=== PATIENT | female | born 1975 | race Caucasian/White ===

== ENCOUNTER 2018-01-11 08:35 | Emergency (ER) | payer BC ==
[2018-01-11] MEDS ORDERED: NA CHLORIDE 0.9% 1,000 ML ONE (09:21)
[2018-01-11] MEDS ORDERED: ONDANSETRON 4 MG/2 ML VIAL ONE (09:21)
[2018-01-11 09:37] LABS: Absolute Lymphocytes (CBC) 1.3 K/uL (0.7-4.9); Absolute Monocytes 0.6 K/uL (0.1-1.3); Basophils % 1.2 % (0-1.3); Hematocrit 32.7 % (36.0-45.0); Lymphocytes % 21.9 % (15.3-44.8); MCH 22.5 pg (27.0-35.0); MCV 73.8 fL (80-100); Monocytes % 9.6 % (3.3-12.3); RBC Red Blood Cell Count 4.43 M/uL (3.86-4.86)
[2018-01-11] MEDS ORDERED: FENTANYL CITR 100 MCG/2 ML ONE (09:38)
[2018-01-11 09:44] LABS: Potassium 3.8 mEq/L (3.6-5.0)
[2018-01-11 09:52] LABS: Urine Blood 1+ (NEG); Urine Glucose NEGATIVE (NEG); Urine Protein 1+ (NEG); Urine Specific Gravity 1.015 (1.005-1.030); Urine pH 6.5 (5.0-7.0)
--- NOTE | 2018-01-11 10:11 | RAD REPORT ---
EXAM DESCRIPTION: CT - Stone Protocol - 01/11/2018 9:49 am CLINICAL HISTORY: Flank pain. COMPARISON: 02/16/2017, 01/15/2017 TECHNIQUE: Axial images were obtained without oral or IV contrast. Lack of contrast limits solid org an and vascular assessment. The [id number] spans the entirety of the system partially obscuring uppermost abdomen and lung bases. Coronal reformatted images were obtained and reviewed. All CT scans are performed using dose optimization technique as appropriate and may include automated exposure control or mA/KV adjustment according to patient size. FINDINGS: The lower lung deluna are clear. Imaged portions of the liver and spleen show no suspicious findings on non-contrast imaging. The panc reas and adrenal glands are normal. No pathologic lymphadenopathy in the abdomen or pelvis. Bilateral nephrolithiasis. Mild bilateral hydronephrosis. The urinary bladder wall is thickened. No bowel obstruction, free air, intra-abdominal free fluid or abscess. Normal appendix noted. No significant bony abnormality. Trace pelvic free fluid. IMPRESSION: Punctate bilateral caliceal stones are present. Mild bilateral hydronephrosis is seen without obstructing calculi. Urinary bladder is thickened which may indicate cystitis.
[2018-01-11 10:32] LABS: Urine Bacteria >50 /HPF (<20); Urine Culture Reflex Order REFLEXED
--- NOTE | 2018-01-11 11:08 | EDPHYS ---
Physician Documentation [facility] Name: Stefanie Valentin Age: 42 yrs Sex: Female : 1975 Arrival Date: 01/11/2018 Time: 08:39 Bed 15 Private MD: Wicho Elmore H ED Physician Guzman Martin HPI: 01/11 09:12 This 42 yrs old Female presents to ER via Ambulatory with complaints of kb Possible Kidney Stone. 09:12 The patient complains of pain in the left flank and right flank. The pain radiates to kb the abdomen. Onset: The symptoms/episode began/occurred 1 week(s) ago. Modifying factors: The symptoms are alleviated by nothing. the symptoms are aggravated by palpation/percussion. Associated signs and symptoms: Pertinent positives: dysuria, urinary frequency, Pertinent negatives: diarrhea, dizziness, fever, headache, hematuria, nausea, pain radiating to the lower extremities, vomiting. Severity of pain: At its worst the pain was moderate in the emergency department the pain is unchanged. The patient has experienced similar episodes in the past, multiple times. The patient has not recently seen a physician. Pt states "I'm here for kidney stones. I get them every year and I know that's what it is.". 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 - Social history:: Smoking status: Patient/guardian denies using tobacco. ROS: 09:12 Constitutional: Negative for fever, chills, and weight loss, Cardiovascular: Negative kb for chest pain, palpitations, and edema, Respiratory: Negative for shortness of breath, cough, wheezing, and pleuritic chest pain, Abdomen/GI: Negative for abdominal pain, nausea, vomiting, diarrhea, and constipation, MS/Extremity: Negative for injury and deformity, Skin: Negative for injury, rash, and discoloration, Neuro: Negative for headache, weakness, numbness, tingling, and seizure. 09:12 Back: Positive for flank pain, bilaterally, Negative for injury or acute deformity, decreased range of motion, pain with movement. 09:12 : Positive for urinary symptoms, urinary frequency, burning with urination. Exam: 09:12 Constitutional: This is a well developed, well nourished patient who is awake, alert, kb and in no acute distress. Head/Face: Normocephalic, atraumatic. Chest/axilla: Normal chest wall appearance and motion. Nontender with no deformity. No lesions are appreciated. Cardiovascular: Regular rate and rhythm with a normal S1 and S2. No gallops, murmurs, or rubs. Normal PMI, no JVD. No pulse deficits. Respiratory: Lungs have equal breath sounds bilaterally, clear to auscultation and percussion. No rales, rhonchi or wheezes noted. No increased work of breathing, no retractions or nasal flaring. Abdomen/GI: Soft, non-tender, with normal bowel sounds. No distension or tympany. No guarding or rebound. No evidence of tenderness throughout. Skin: Warm, dry with normal turgor. Normal color with no rashes, no lesions, and no evidence of cellulitis. MS/ Extremity: Pulses equal, no cyanosis. Neurovascular intact. Full, normal range of motion. Neuro: Awake and alert, GCS 15, oriented to person, place, time, and situation. Cranial nerves II-XII grossly intact. Motor strength 5/5 in all extremities. Sensory grossly intact. Cerebellar exam normal. Normal gait. 09:12 Back: CVA tenderness, that is mild, that is moderate, is noted bilaterally. Vital Signs: 08:55 BP 124 / 85; Pulse 81; Resp 16; Temp 98; Pulse Ox 100% on R/A; Weight 90.72 kg; Height hb 5 ft. 5 in. (165.10 cm); Pain 7/10; 11:07 BP 115 / 54; Pulse 65; Resp 18; Pulse Ox 99% on R/A; Pain 5/10; ph 08:55 Body Mass Index 33.28 (90.72 kg, 165.10 cm) hb MDM: 08:59 Patient medically screened. kb 09:12 Data reviewed: vital signs, nurses notes. Data interpreted: Pulse oximetry: on room air kb is 100 %. Interpretation: normal. 10:36 Counseling: I had a detailed discussion with the patient and/or guardian regarding: the kb historical points, exam findings, and any diagnostic results supporting the discharge/admit diagnosis, lab results, radiology results, the need for outpatient follow up, a urologist, to return to the emergency department if symptoms worsen or persist or if there are any questions or concerns that arise at home. 01/11 09:03 Order name: Urine Microscopic Only; Complete Time: 10:35 kb 01/11 09:08 Order name: CBC with Diff; Complete Time: 09:55 kb 01/11 09:08 Order name: Basic Metabolic Panel; Complete Time: 09:48 kb 01/11 09:20 Order name: Urine Dipstick--Ancillary (enter results); Complete Time: 09:55 bd 01/11 09:20 Order name: Urine --Ancillary (enter results); Complete Time: 09:55 bd 01/11 10:34 Order name: Urine Culture EDMS 01/11 09:03 Order name: Urine Test (obtain specimen); Complete Time: 09:19 kb 01/11 09:03 Order name: Urine Dipstick-Ancillary (obtain specimen); Complete Time: 09:19 kb 01/11 09:08 Order name: IV Start; Complete Time: 09:19 kb 01/11 09:08 Order name: CT Stone Protocol; Complete Time: 10:26 kb Administered Medications: 09:51 Drug: Zofran 4 mg Route: IVP; Site: right antecubital; ph 09:52 Drug: fentaNYL (PF) 50 mcg Route: IVP; Site: right antecubital; ph 09:52 Drug: NS 0.9% 1000 ml Route: IV; Rate: 1000 ml; Site: right antecubital; ph 11:25 Drug: Rocephin - (cefTRIAXone) 1 grams Route: IVPB; Infused Over: 30 mins; Site: right aa5 antecubital; Disposition: 14:19 Co-signature as Attending Physician, Guzman Martin MD I agree with the assessment and damian plan of care. Disposition: 01/11/18 11:07 Discharged to Home. Impression: Cystitis. - Condition is Stable. - Discharge Instructions: Urinary Tract Infection, [id number]. - Prescriptions for Cipro 500 mg Oral Tablet - take 1 tablet by ORAL route every 12 hours for 7 days; 14 tablet. Tramadol 50 mg Oral Tablet - take 1 tablet by ORAL route every 8 hours as needed; 12 tablet. - Medication Reconciliation Form, Thank You Letter, Antibiotic Education, Prescription Opioid Use, Work release form form. - Follow up: Emergency Department; When: As needed; Reason: Worsening of condition. Follow up: Private Physician; When: 2 - 3 days; Reason: Recheck today's complaints, Continuance of care, Re-evaluation by your physician. Signatures: Dispatcher [employer] EDMS Tami Arellano, EMBOSSED OR IMPRESSED LETTERING PAINTER-C EMBOSSED OR IMPRESSED LETTERING PAINTER-Billb Guzman Martin MD MD cha Calderon, Audri, RN RN aa5 Emilee Kapoor RN RN Naila Lora RN RN Corrections: (The following items were deleted from the chart) 11:39 11:07 01/11/2018 11:07 Discharged to Home. Impression: Cystitis. Condition is Stable. ph Discharge Instructions: Urinary Tract Infection, [id number]. Prescriptions for Cipro 500 mg Oral Tablet - take 1 tablet by ORAL route every 12 hours for 7 days; 14 tablet. and Forms are Medication Reconciliation Form, Thank You Letter, Antibiotic Education, Prescription Opioid Use. Follow up: Emergency Department; When: As needed; Reason: Worsening of condition. Follow up: Private Physician; When: 2 - 3 days; Reason: Recheck today's complaints, Continuance of care, Re-evaluation by your physician. kb
--- NOTE | 2018-01-11 11:08 | ER ---
Nurse's Notes [facility] Name: Stefanie Valentin Age: 42 yrs Sex: Female : 1975 Arrival Date: 01/11/2018 Time: 08:39 Bed 15 Private MD: Wicho Elmore H Diagnosis: Cystitis Presentation: 01/11 08:53 Presenting complaint: Patient states: Both my kidneys hurt and the pain radiates down hb into both hips for the last week. Also reports itching, and loss of appetite. Hx kidney stones, HTN. Transition of care: patient was not received from another setting of care. Onset of symptoms is unknown. Initial Sepsis Screen: Does the patient meet any 2 criteria? No. Patient's initial sepsis screen is negative. Does the patient have a suspected source of infection? No. Patient's initial sepsis screen is negative. Care prior to arrival: None. 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 - Social history:: Smoking status: Patient/guardian denies using tobacco. Screenin:27 Abuse screen: Denies threats or abuse. Denies injuries from another. Nutritional ph screening: No deficits noted. Tuberculosis screening: No symptoms or risk factors identified. Fall Risk None identified. Assessment: 09:24 General: Appears in no apparent distress. uncomfortable, well groomed, Behavior is ph calm, cooperative, appropriate for age, Denies fever. Pain: Complains of pain in mid back area Pain radiates to right flank, left flank and abdomen. Neuro: Level of Consciousness is awake, alert, obeys commands, Oriented to person, place, time, situation. Cardiovascular: Capillary refill < 3 seconds in bilateral fingers Patient's skin is warm and dry. Respiratory: Airway is patent Respiratory effort is even, unlabored, Respiratory pattern is regular, symmetrical. GI: Abdomen is round non-distended, Bowel sounds present X 4 quads. Abd is soft and non tender X 4 quads. Reports nausea, Patient currently denies vomiting. : Reports burning with urination, pain in bilateral flank(s), lower quadrant(s) in lower back urinary frequency. Derm: Skin is intact, is healthy with good turgor, Skin is pink, warm \T\ dry. Musculoskeletal: Circulation, motion, and sensation intact. Range of motion: intact in all extremities. 11:08 Reassessment: Patient appears in no apparent distress at this time. Patient and/or ph family updated on plan of care and expected duration. Pain level reassessed. Patient is alert, oriented x 3, equal unlabored respirations, skin warm/dry/pink. Pt resting quietly, reports that pain has decreased to 5/10 and denies nausea, VSS will continue to monitor. Vital Signs: 08:55 BP 124 / 85; Pulse 81; Resp 16; Temp 98; Pulse Ox 100% on R/A; Weight 90.72 kg; Height hb 5 ft. 5 in. (165.10 cm); Pain 7/10; 11:07 BP 115 / 54; Pulse 65; Resp 18; Pulse Ox 99% on R/A; Pain 5/10; ph 08:55 Body Mass Index 33.28 (90.72 kg, 165.10 cm) hb ED Course: 08:39 Patient arrived in ED. mr 08:39 Wicho Elmore DO is Private Physician. mr 08:50 Tami Arellano [facility]-C [facility]. kb 08:50 Guzman Martin MD is Attending Physician. kb 08:55 Triage completed. hb 08:55 Arm band placed on left wrist. hb 09:01 Eimlee Kapoor, HANY is Primary Nurse. ph 09:27 Patient has correct armband on for positive identification. Bed in low position. Call ph light in reach. Side rails up X 1. Pulse ox on. NIBP on. Warm blanket given. 09:27 Inserted saline lock: 20 gauge in right antecubital area, using aseptic technique. ph Blood collected. 09:[address] via wheelchair. kw1 09:48 CT completed. Patient tolerated procedure well. Patient moved back from [place]. kw1 09:49 CT Stone Protocol In Process Unspecified. EDMS 11:08 No provider procedures requiring assistance completed. ph Administered Medications: 09:51 Drug: Zofran 4 mg Route: IVP; Site: right antecubital; ph 09:52 Drug: fentaNYL (PF) 50 mcg Route: IVP; Site: right antecubital; ph 09:52 Drug: NS 0.9% 1000 ml Route: IV; Rate: 1000 ml; Site: right antecubital; ph 11:25 Drug: Rocephin - (cefTRIAXone) 1 grams Route: IVPB; Infused Over: 30 mins; Site: right aa5 antecubital; Outcome: 11:07 Discharge ordered by . kb 11:39 Patient left the ED. ph Addendum: 01/14/2018 07:33 Addendum: Culture Results: Positive urine culture. No further action required. Bacteria i w sensitive to prescribed antibiotic. Signatures: Dispatcher [employer] EDMS Tami Arellano, LINDY SCABBLER-Leslie Landrum Irene, Rekha Greene RN, RN RN aa Emilee Kapoor RN RN Naila Lora RN RN Tiki Godinez kw1
[2018-01-11] MEDS ORDERED: CEFTRIAXONE/SWI 1gm 1 GM/10 ML SYR ONE (11:21)
[2018-01-11 11:46] VITALS: TEMP 98
[2018-01-11 11:47] VITALS: BP 115/54; O2SAT 99
== END 2018-01-11 11:39 | disposition home or self-care (01) ==
LOC: ER 08:35
DX: N30.90 Cystitis, unspecified without hematuria (principal); I10 Essential (primary) hypertension; E03.9 Hypothyroidism, unspecified; Z88.5 Allergy status to narcotic agent; Z88.6 Allergy status to analgesic agent
CPT/HCPCS: 36415; 74176; 76377; 80048; 81003; 81015; 81025; 85025; 87077; 87086; 87088; 87186; 96374; 96375; 99284; J0696; J2405; J3010; J7030

== ENCOUNTER 2018-01-25 20:51 | Emergency (ER) | payer BC ==
[2018-01-25 21:56] LABS: Urine Blood 1+ (NEG); Urine Glucose NEGATIVE (NEG); Urine Protein NEGATIVE (NEG); Urine Specific Gravity 1.025 (1.005-1.030); Urine pH 6.5 (5.0-7.0)
[2018-01-25] MEDS ORDERED: MORPHINE 4 MG/ML SYR ONE (22:03)
[2018-01-25] MEDS ORDERED: ONDANSETRON 4 MG/2 ML VIAL ONE (22:03)
[2018-01-25 22:06] LABS: Absolute Lymphocytes (CBC) 1.7 K/uL (0.7-4.9); Absolute Monocytes 0.5 K/uL (0.1-1.3); Absolute Neutrophil 1.7 K/uL (1.8-8.0); Eosinophils % 2.6 % (0-4.4); Hematocrit 30.3 % (36.0-45.0); Lymphocytes % 41.3 % (15.3-44.8); MCH 23.1 pg (27.0-35.0); MPV 9.1 fL (7.6-11.3); Monocytes % 11.5 % (3.3-12.3); RBC Red Blood Cell Count 4.21 M/uL (3.86-4.86)
[2018-01-25] MEDS ORDERED: NA CHLORIDE 0.9% 1,000 ML ONE (22:11)
[2018-01-25 22:17] LABS: Bicarbonate 27 mEq/L (21-31); Glucose Level 105 mg/dL (65-120); Potassium 3.5 mEq/L (3.6-5.0); Sodium Level 138 mEq/L (135-145)
[2018-01-25 22:23] LABS: ALT/SGPT 27 IU/L (10-60); AST/SGOT 22 IU/L (10-42); Albumin 3.8 g/dL (3.2-5.5); Alkaline Phosphatase 98 IU/L (42-121); BUN Blood Urea Nitrogen 14 mg/dL (6-20); Bilirubin Direct < 0.1 mg/dL (0-0.2); Bilirubin Total 0.4 mg/dL (0.3-1.2); Protein, Total 7.1 g/dL (6.0-8.3)
[2018-01-25 22:24] LABS: Urine Bacteria <20 /HPF (<20); Urine Culture Reflex Order NOT NEEDED; Urine Mucus SLIGHT /HPF (NONE SEEN); Urine RBC <5 /HPF (NONE SEEN)
[2018-01-25] MEDS ORDERED: ACETAMINOPHEN 500 MG TAB ONE (22:51)
[2018-01-25] MEDS ORDERED: MAGNESIUM CITRATE 300 ML BOT ONE (23:31)
--- NOTE | 2018-01-25 23:35 | ER ---
Nurse's Notes [facility] Name: Stefanie Valentin Age: 42 yrs Sex: Female : 1975 Arrival Date: 01/25/2018 Time: 20:55 Bed 27 Private MD: Wicho Elmore H Diagnosis: Abdominal and pelvic pain;Constipation Presentation: 01/25 21:15 Presenting complaint: Patient states: bilateral flank pain since 01/11/18. pt stated she ak[place]ia was seen in ER 01/11/15 given tramadol and cipro that she completed. pt stated she is still in pain and "does not want another catscan". Transition of care: patient was not received from another setting of care. Onset of symptoms is unknown. Risk Assessment: Do you want to hurt yourself or someone else? Patient reports no desire to harm self or others. Initial Sepsis Screen: Does the patient meet any 2 criteria? No. Patient's initial sepsis screen is negative. Does the patient have a suspected source of infection? No. Patient's initial sepsis screen is negative. Care prior to arrival: None. 21:15 Method Of Arrival: Ambulatory ak1 21:15 Acuity: DARREN 3 ak1 Triage Assessment: 21:17 General: Appears uncomfortable, Behavior is calm, cooperative. Pain: Complains of pain ak1 in left mid back and right mid back. 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 - Social history:: Smoking status: Patient/guardian denies using tobacco. - Ebola Screening: : No symptoms or risks identified at this time. Screenin:18 Abuse screen: Denies threats or abuse. Denies injuries from another. Nutritional ak1 screening: No deficits noted. Tuberculosis screening: No symptoms or risk factors identified. Fall Risk None identified. Assessment: 21:20 General: Appears uncomfortable, well groomed, well developed, well nourished, Behavior kr2 is calm, cooperative. Pain: Complains of pain in back and right mid back and left mid back Pain currently is 10 out of 10 on a pain scale. Quality of pain is described as aching, pressure, sharp, Is continuous, Alleviated by nothing. Aggravated by increased activity, repositioning. Neuro: Level of Consciousness is awake, alert, obeys commands, Oriented to person, place, time, situation, Appropriate for age. Cardiovascular: Capillary refill < 3 seconds in bilateral fingers Patient's skin is warm and dry. Respiratory: Airway is patent Respiratory effort is even, unlabored, Respiratory pattern is regular, symmetrical. GI: Abdomen is flat, non-distended. : No signs and/or symptoms were reported regarding the genitourinary system. EENT: Oral mucosa is dry. Derm: Skin is intact, is healthy with good turgor, Skin is pink, warm \\T\\ dry. Musculoskeletal: Circulation, motion, and sensation intact. 22:30 Reassessment: Patient appears in no apparent distress at this time. Patient and/or kr2 family updated on plan of care and expected duration. Pain level reassessed. Patient is alert, oriented x 3, equal unlabored respirations, skin warm/dry/pink. 23:30 Reassessment: Patient appears in no apparent distress at this time. Patient and/or kr2 family updated on plan of care and expected duration. Pain level reassessed. Patient is alert, oriented x 3, equal unlabored respirations, skin warm/dry/pink. Patient states feeling better. Vital Signs: 21:17 BP 125 / 54; Pulse 78; Resp 16; Temp 98.6; Pulse Ox 99% on R/A; Weight 90.72 kg (R); ak1 Height 5 ft. 4 in. (162.56 cm) (R); Pain 10/10; 22:30 BP 114 / 69; Pulse 71; Resp 18; Pulse Ox 99% on R/A; mt 23:12 BP 110 / 65; Pulse 74; Resp 16; Pulse Ox 99% on R/A; kr2 23:54 BP 115 / 70; Pulse 70; Resp 16; Pulse Ox 99% on R/A; kr2 21:17 Body Mass Index 34.33 (90.72 kg, 162.56 cm) ak1 ED Course: 20:55 Patient arrived in ED. es 20:55 Wicho Elmore DO is Private Physician. es 20:55 Omer Jones MD is Attending Physician. kdr 21:07 Sharlene Griffith RN is Primary Nurse. kr2 21:16 Triage completed. ak1 21:18 Patient has correct armband on for positive identification. ak1 21:18 Arm band placed on Patient placed in an exam room, on a stretcher, Patient notified of ak1 wait time. 22:[address] via wheelchair. mw3 22:12 CT Stone Protocol In Process Unspecified. EDMS 23:32 Wicho Elmore DO is Referral Physician. kdr 23:58 No provider procedures requiring assistance completed. IV discontinued, intact, kr2 bleeding controlled, No redness/swelling at site. Pressure dressing applied. Inserted saline lock: 22 gauge in right forearm, using aseptic technique. Blood collected. Administered Medications: 22:06 Drug: Zofran 4 mg Route: IVP; Site: right antecubital; kr2 22:59 Follow up: Response: No adverse reaction kr2 22:07 Drug: morphine 4 mg Route: IVP; Site: right antecubital; kr2 22:59 Follow up: Response: No adverse reaction kr2 22:59 Follow up: Response: Pain is decreased kr2 22:36 Drug: NS 0.9% 1000 ml Route: IV; Rate: 1 bolus; Site: right antecubital; kr2 01/26 00:00 Follow up: Response: No adverse reaction; IV Status: Completed infusion kr2 01/25 22:59 Drug: Tylenol 1000 mg Route: PO; kr2 23:54 Follow up: Response: No adverse reaction; Pain is decreased kr2 23:54 Drug: Magnesium Citrate Liquid 300 ml Route: PO; kr2 23:54 Follow up: Response: Medication administered at discharge. kr2 Outcome: 23:34 Discharge ordered by . kdr 23:59 Discharged to home ambulatory, with family. kr2 23:59 Condition: good 23:59 Discharge instructions given to patient, family, Instructed on discharge instructions, follow up and referral plans. medication usage, Demonstrated understanding of instructions, follow-up care, medications, Prescriptions given X 3. 01/26 00:00 Patient left the ED. kr2 Signatures: Dispatcher [employer] EDMS Omer Jones MD MD kdr Salyer, Edna es Krenek, Amber, RN RN [email or web address] Sarah Matos mt, Karey, RN RN kr2 Arlen Stoner 3
--- NOTE | 2018-01-25 23:35 | EDPHYS ---
Physician Documentation [facility] Name: Stefanie Valentin Age: 42 yrs Sex: Female : 1975 Arrival Date: 01/25/2018 Time: 20:55 Bed 27 Private MD: Wicho Elmore H ED Physician Omer Jones HPI: 01/26 00:16 This 42 yrs old Female presents to ER via Ambulatory with complaints of kdr Kidney problem, headache. 00:16 The patient presents with abdominal pain that is diffuse, Bilateral flank pain - has kdr been persistent fo the last two weeks since she was seen here previously. Onset: The symptoms/episode began/occurred gradually, 2 week(s) ago. The symptoms radiate to both flanks. Associated signs and symptoms: Pertinent positives: headache, nausea, Pertinent negatives: anorexia, blood in stools, chest pain, constipation, diarrhea, dysuria, fever, hematuria, palpitations, shortness of breath, vaginal discharge, vomiting. The symptoms are described as achy, constant, crampy, dull, vague. Modifying factors: The symptoms are alleviated by nothing, the symptoms are aggravated by coughing, movement, nothing. touching the area, walking. Severity of pain: At its worst the pain was mild moderate just prior to arrival, in the emergency department the pain is unchanged. The patient has experienced similar episodes in the past, chronically. The patient has not recently seen a physician. 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 - Social history:: Smoking status: Patient/guardian denies using tobacco. - Ebola Screening: : No symptoms or risks identified at this time. ROS: 01/26 00:16 Constitutional: Negative for fever, chills, and weight loss, Eyes: Negative for injury, kdr pain, redness, and discharge, ENT: Negative for injury, pain, and discharge, Neck: Negative for injury, pain, and swelling, Cardiovascular: Negative for chest pain, palpitations, and edema, Respiratory: Negative for shortness of breath, cough, wheezing, and pleuritic chest pain, Back: Negative for injury and pain, : Negative for injury, bleeding, discharge, and swelling, MS/Extremity: Negative for injury and deformity, Skin: Negative for injury, rash, and discoloration, Neuro: Negative for headache, weakness, numbness, tingling, and seizure activity. Psych: Negative for depression, anxiety, suicide ideation, homicidal ideation, and hallucinations, Allergy/Immunology: Negative for hives, rash, and allergies, Endocrine: Negative for neck swelling, polydipsia, polyuria, polyphagia, and marked weight changes, Hematologic/Lymphatic: Negative for swollen nodes, abnormal bleeding, and unusual bruising. Abdomen/GI: Positive for abdominal pain, nausea, abdominal cramps, Negative for abdominal distension, anorexia, dysphagia, hematemesis, black/tarry stool, rectal pain, rectal bleeding, bowel incontinence. Exam: 00:16 Constitutional: This is a well developed, well nourished patient who is awake, alert, kdr and in no acute distress. Head/Face: Normocephalic, atraumatic. Eyes: Pupils equal round and reactive to light, extra-ocular motions intact. Lids and lashes normal. Conjunctiva and sclera are non-icteric and not injected. Cornea within normal limits. Periorbital areas with no swelling, redness, or edema. Neck: Trachea midline, no thyromegaly or masses palpated, and no cervical lymphadenopathy. Supple, full range of motion without nuchal rigidity, or vertebral point tenderness. No Meningismus. Chest/axilla: Normal chest wall appearance and motion. Nontender with no deformity. No lesions are appreciated. Cardiovascular: Regular rate and rhythm with a normal S1 and S2. No gallops, murmurs, or rubs. Normal PMI, no JVD. No pulse deficits. Respiratory: Lungs have equal breath sounds bilaterally, clear to auscultation and percussion. No rales, rhonchi or wheezes noted. No increased work of breathing, no retractions or nasal flaring. Skin: Warm, dry with normal turgor. Normal color with no rashes, no lesions, and no evidence of cellulitis. MS/ Extremity: Pulses equal, no cyanosis. Neurovascular intact. Full, normal range of motion. Neuro: Awake and alert, GCS 15, oriented to person, place, time, and situation. Cranial nerves II-XII grossly intact. Motor strength 5/5 in all extremities. Sensory grossly intact. Cerebellar exam normal. Normal gait. Psych: Awake, alert, with orientation to person, place and time. Behavior, mood, and affect are within normal limits. 00:16 Abdomen/GI: Inspection: abdomen appears normal, obese Bowel sounds: active, all quadrants, Palpation: soft, mild abdominal tenderness, in all quadrants, mass, is not appreciated, rebound tenderness, is not appreciated. Vital Signs: 01/25 21:17 BP 125 / 54; Pulse 78; Resp 16; Temp 98.6; Pulse Ox 99% on R/A; Weight 90.72 kg (R); ak1 Height 5 ft. 4 in. (162.56 cm) (R); Pain 10/10; 22:30 BP 114 / 69; Pulse 71; Resp 18; Pulse Ox 99% on R/A; mt 23:12 BP 110 / 65; Pulse 74; Resp 16; Pulse Ox 99% on R/A; kr2 23:54 BP 115 / 70; Pulse 70; Resp 16; Pulse Ox 99% on R/A; kr2 21:17 Body Mass Index 34.33 (90.72 kg, 162.56 cm) ak1 MDM: 23:34 Patient medically screened. kdr 01/26 00:16 Data reviewed: vital signs, nurses notes, lab test result(s), radiologic studies. kdr Counseling: I had a detailed discussion with the patient and/or guardian regarding: the historical points, exam findings, and any diagnostic results supporting the discharge/admit diagnosis, lab results, radiology results, the need for outpatient follow up. 01/25 21:32 Order name: Urine Dipstick--Ancillary (enter results); Complete Time: 22:41 eb 01/25 21:32 Order name: Urine --Ancillary (enter results); Complete Time: 22:41 eb 01/25 21:34 Order name: Basic Metabolic Panel; Complete Time: 22:41 kdr 01/25 21:34 Order name: CBC with Diff; Complete Time: 22:41 kdr 01/25 21:34 Order name: Creatinine for Radiology; Complete Time: 22:41 kdr 01/25 21:34 Order name: Hepatic Function; Complete Time: 22:41 kdr 01/25 21:34 Order name: Urine Microscopic Only; Complete Time: 22:41 kdr 01/25 21:34 Order name: IV Saline Lock; Complete Time: 22:07 kdr 01/25 21:48 Order name: CT Stone Protocol kdr 01/25 21:34 Order name: Labs collected and sent; Complete Time: 22: kdr 01/25 21:34 Order name: Urine Dipstick-Ancillary (obtain specimen); Complete Time: 22:07 kdr Administered Medications: 01/25 22:06 Drug: Zofran 4 mg Route: IVP; Site: right antecubital; kr2 22:59 Follow up: Response: No adverse reaction kr2 22:07 Drug: morphine 4 mg Route: IVP; Site: right antecubital; kr2 22:59 Follow up: Response: No adverse reaction kr2 22:59 Follow up: Response: Pain is decreased kr2 22:36 Drug: NS 0.9% 1000 ml Route: IV; Rate: 1 bolus; Site: right antecubital; kr2 01/26 00:00 Follow up: Response: No adverse reaction; IV Status: Completed infusion kr2 01/25 22:59 Drug: Tylenol 1000 mg Route: PO; kr2 23:54 Follow up: Response: No adverse reaction; Pain is decreased kr2 23:54 Drug: Magnesium Citrate Liquid 300 ml Route: PO; kr2 23:54 Follow up: Response: Medication administered at discharge. kr2 Disposition: 01/25/18 23:34 Discharged to Home. Impression: Abdominal and pelvic pain, Constipation. - Condition is Stable. - Discharge Instructions: Constipation, Adult, Agna-mp-Apys, Abdominal Pain, Adult, [id number]. - Prescriptions for magnesium citrate - take 1 bottle by ORAL route 2-3 times daily As needed; 4 bottle. Bentyl 20 mg Oral Tablet - take 1 tablet by ORAL route every 6 hours As needed; 20 tablet. Miralax 17 gram/dose Oral - take 1 packet by ORAL route once daily As needed dilute powder in 8 ounces of water or juice; 1 box. - Medication Reconciliation Form, Thank You Letter, Antibiotic Education, Prescription Opioid Use form. - Follow up: Wicho Elmore DO; When: 2 - 3 days; Reason: If symptoms return, Further diagnostic work-up, Recheck today's complaints, Continuance of care, Re-evaluation by your physician. - Problem is an ongoing problem. - Symptoms are unchanged. Signatures: Dispatcher [employer] EDMS Omer Jones MD MD kdr Paola Hall RN RN ak1 Sharlene Griffith RN RN kr2 Corrections: (The following items were deleted from the chart) 01/26 00:00 01/25 23:34 01/25/2018 23:34 Discharged to Home. Impression: Abdominal and pelvic pain; kr2 Constipation. Condition is Stable. Forms are Medication Reconciliation Form, Thank You Letter, Antibiotic Education, Prescription Opioid Use. Follow up: Wicho Elmore; When: 2 - 3 days; Reason: If symptoms return, Further diagnostic work-up, Recheck today's complaints, Continuance of care, Re-evaluation by your physician. Problem is an ongoing problem. Symptoms are unchanged. kdr
[2018-01-26 00:32] VITALS: TEMP 98.6; O2SAT 99
[2018-01-26 00:36] VITALS: BP 115/70
--- NOTE | 2018-01-26 07:25 | RAD REPORT ---
EXAM DESCRIPTION: CT - Stone Protocol - 01/26/2018 3:12 am CLINICAL HISTORY: Abdominal pain. Right lower quadrant pain for 2 weeks. Surgery date 6+ months COMPARISON: January 11, 2018 TECHNIQUE: Computed axial tomography of the abdomen pelvis was obtained without oral or IV contrast. Lack of IV and oral contrast limits evaluation of solid organs, bowel, and vessels. Coronal reformat edgar images were obtained and reviewed. A preliminary report was generated by [employer] and reviewed prior to this dictation All CT scans are performed using dose optimization technique as appropriate and may include automated exposure control or mA/KV adjustment according to patient size. 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 Mild right hydronep hrosis is unchanged from the prior exam. A ureteral calculus is not seen. A bladder calculus is not n oted. A 9 millimeter nonspecific mass extends off of the posterior right kidney. Most likely represen ts a cyst. The liver, spleen, pancreas and adrenals appear grossly normal There is no evidence of diverticulitis. The appendix appears normal A tampon is present within the vagina. A small amount of free fluid is present within the pelvis. A moderate amount of stool is seen throughout colon IMPRESSION: Small nonobstructing renal calculi Mild right hydronephrosis unchanged from January 11 without visualization of an obstructing ureteral ca lculus Moderate amount of stool within the colon
== END 2018-01-26 | disposition home or self-care (01) ==
LOC: ER 20:51
DX: K59.00 Constipation, unspecified (principal); I10 Essential (primary) hypertension; E03.9 Hypothyroidism, unspecified; Z88.5 Allergy status to narcotic agent; Z88.6 Allergy status to analgesic agent
CPT/HCPCS: 36415; 74176; 76377; 80048; 80076; 81003; 81015; 81025; 85025; 96361; 96374; 96375; 99284; J2405; J7030

== ENCOUNTER 2018-01-30 17:03 | Emergency (ER) | payer BC ==
[2018-01-30] MEDS ORDERED: MORPHINE 4 MG/ML SYR ONE (17:57)
[2018-01-30] MEDS ORDERED: ONDANSETRON 4 MG/2 ML VIAL ONE (17:58)
[2018-01-30] MEDS ORDERED: NA CHLORIDE 0.9% 1,000 ML ONE (17:58)
[2018-01-30 18:08] LABS: Absolute Lymphocytes (CBC) 1.8 K/uL (0.7-4.9); Absolute Monocytes 0.7 K/uL (0.1-1.3); Absolute Neutrophil 3.3 K/uL (1.8-8.0); Basophils % 1.3 % (0-1.3); Eosinophils % 1.8 % (0-4.4); Hematocrit 33.4 % (36.0-45.0); Lymphocytes % 30.1 % (15.3-44.8); MCH 22.6 pg (27.0-35.0); MCV 72.8 fL (80-100); MPV 8.8 fL (7.6-11.3); Monocytes % 12.1 % (3.3-12.3); RBC Red Blood Cell Count 4.58 M/uL (3.86-4.86)
[2018-01-30 18:23] LABS: Bicarbonate 27 mEq/L (21-31); Glucose Level 91 mg/dL (65-120); Lipase 37 U/L (22-51); Potassium 3.9 mEq/L (3.6-5.0); Sodium Level 138 mEq/L (135-145)
[2018-01-30 18:27] LABS: ALT/SGPT 45 IU/L (10-60); AST/SGOT 31 IU/L (10-42); Albumin 4.2 g/dL (3.2-5.5); Alkaline Phosphatase 108 IU/L (42-121); BUN Blood Urea Nitrogen 16 mg/dL (6-20); Bilirubin Direct < 0.1 mg/dL (0-0.2); Bilirubin Total 0.3 mg/dL (0.3-1.2); Protein, Total 7.8 g/dL (6.0-8.3)
[2018-01-30 19:47] LABS: Urine Blood TRACE (NEG); Urine Glucose NEGATIVE (NEG); Urine Protein NEGATIVE (NEG); Urine Specific Gravity 1.025 (1.005-1.030)
--- NOTE | 2018-01-30 20:45 | ER ---
Nurse's Notes [facility] Name: Stefanie Valentin Age: 42 yrs Sex: Female : 1975 Arrival Date: 01/30/2018 Time: 17:05 Bed 2 Private MD: Wicho Elmore H Diagnosis: Low back pain;Unspecified renal colic Presentation: 01/30 17:26 Presenting complaint: Patient states: she has been seen here 2 times before for the sv same pain and the pain has not gotten any better nor any worse. Pt reports pain is now on her left side pain that radiates up into the LUQ with a "bulge" that has come up and radiates down to her left buttock. Pt reports it intermittently goes to bilateral buttocks. c/o nausea, loose stools and SOB. Pt reports being "fidgety." Pt appears anxious. Transition of care: patient was not received from another setting of care. Onset of symptoms was December 2017. 17:26 Method Of Arrival: Ambulatory sv 17:26 Acuity: DARREN 3 sv 17:27 Risk Assessment: Do you want to hurt yourself or someone else? Patient reports no sv desire to harm self or others. Care prior to arrival: None. 22:11 Initial Sepsis Screen: Does the patient meet any 2 criteria? No. Patient's initial bp sepsis screen is negative. Does the patient have a suspected source of infection? No. Patient's initial sepsis screen is negative. 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 - Social history:: Smoking status: Patient/guardian denies using tobacco, Patient/guardian denies using alcohol. - Ebola Screening: : No symptoms or risks identified at this time. Screenin:12 Abuse screen: Denies threats or abuse. Denies injuries from another. Nutritional hb screening: No deficits noted. Tuberculosis screening: No symptoms or risk factors identified. Fall Risk None identified. Assessment: 17:55 General: Appears in no apparent distress. Behavior is cooperative, anxious, crying. hb Pain: Pain currently is 8 out of 10 on a pain scale. Neuro: Level of Consciousness is awake, alert, obeys commands, Oriented to person, place, time, situation. Cardiovascular: Capillary refill < 3 seconds Patient's skin is warm and dry. Respiratory: Airway is patent Trachea midline Respiratory effort is even, unlabored, Respiratory pattern is regular, symmetrical, Breath sounds are clear bilaterally. GI: Abdomen is non-distended, Bowel sounds present X 4 quads. Abd is soft and non tender X 4 quads. Reports upper abdominal pain. : No signs and/or symptoms were reported regarding the genitourinary system. EENT: No signs and/or symptoms were reported regarding the EENT system. Derm: No signs and/or symptoms reported regarding the dermatologic system. Skin is intact, is healthy with good turgor, Skin is pink, warm \\T\\ dry. Musculoskeletal: No signs and/or symptoms reported regarding the musculoskeletal system. 18:24 Reassessment: Patient appears in no apparent distress at this time. No changes from hb previously documented assessment. Patient and/or family updated on plan of care and expected duration. Pain level reassessed. Patient is alert, oriented x 3, equal unlabored respirations, skin warm/dry/pink. 19:00 Reassessment: RECD REPORT FROM NAILA LEACH. 42YO WF P/W BACK AND SIDE PAIN, SEEN FOR bp SAME MX TIMES. VS STABLE ON MONITOR, DISPO PENDING. 21:00 Reassessment: ATTEMPT TO D/C PT AFTER SEEN BY PROVIDER. PT AND FAMILY DECLINING D/C rv UNTIL SPEAKING WITH PROVIDER AGAIN. PT AND FAMILY UNABLE TO ARTICULATE SPECIFIC CONCERNS OR QUESTIONS, CITING "WE WEREN'T DONE TALKING TO HIM YET.". 22:10 Reassessment: PT D/C [facility] BY PROVIDER, PT EDUCATED THAT THE ER DOES NOT PRESCRIBE bp MEDICATION REQUIRING F/U AND DIRECTED TO PCP FOR REQUESTED LYRICA AND GABAPENTIN. PT D/C HOME AMBULATORY WITH FAMILY, DX WITH RENAL COLIC AND SCIATICA. Vital Signs: 17:32 BP 141 / 127 RA Sitting (auto/reg); Pulse 106; Resp 24; Temp 99.4(TE); Pulse Ox 98% ; sv Weight 90.72 kg; Height 5 ft. 4 in. (162.56 cm); Pain 8/10; 18:03 BP 117 / 98; Pulse 101; Resp 18; Pulse Ox 100% on R/A; dh3 18:25 BP 130 / 78; Pulse 87; Resp 17; Pulse Ox 100% on R/A; hb 19:00 BP 139 / 58; Pulse 88; Resp 18; Pulse Ox 100% ; bp 19:41 BP 122 / 107; Pulse 69; Resp 16; Pulse Ox 100% on R/A; rv 20:00 BP 121 / 73; Pulse 75; Resp 16; Pulse Ox 100% ; rv 21:00 BP 111 / 68; Pulse 90; Resp 18; Pulse Ox 97% ; rv 17:32 Body Mass Index 34.33 (90.72 kg, 162.56 cm) sv ED Course: 17:05 Patient arrived in ED. sb2 17:05 Wicho Elmore DO is Private Physician. sb2 17:30 Triage completed. sv 17:33 Arm band placed on right wrist. sv 17:39 Sae Cuellar NP is PHCP. pm1 17:39 Nba Calle MD is Attending Physician. pm1 18:02 Initial lab(s) drawn, by me, sent to lab. Inserted saline lock: 20 gauge in left dh3 antecubital area, using aseptic technique. Blood collected. 18:05 Naila Lora, RN is Primary Nurse. hb 19:00 Patient has correct armband on for positive identification. Bed in low position. Call rv light in reach. Side rails up X2. Adult w/ patient. 19:17 Urine collected: clean catch specimen, clear. dh3 20:44 Wicho Elmore DO is Referral Physician. pm1 21:00 No provider procedures requiring assistance completed. IV discontinued, intact, rv bleeding controlled, No redness/swelling at site. Pressure dressing applied. Administered Medications: 18:06 Drug: morphine 4 mg Route: IVP; Site: left antecubital; hb 21:24 Follow up: Response: No adverse reaction rv 18:06 Drug: Zofran 4 mg Route: IVP; Site: left antecubital; hb 21:24 Follow up: Response: No adverse reaction rv 18:06 Drug: NS 0.9% 1000 ml Route: IV; Rate: 1000 ml; Site: left antecubital; hb Outcome: 20:44 Discharge ordered by MD. pm1 22:11 Discharged to home ambulatory, with family. bp 22:11 Condition: stable 22:11 Discharge instructions given to patient, Instructed on discharge instructions, follow up and referral plans. no drinking with medication, medication usage, Demonstrated understanding of instructions, follow-up care, medications, Prescriptions given X 2. 22:11 Patient left the ED. bp Signatures: Reema Dooley RN RN Sae Cuellar NP COMMERCIAL ACCOUNT MANAGER pm1 Naila Lora RN RN Ritu Abernathy 3 Andi Valderrama RN RN Denise Nielsen 2 Lorne Saeed RN RN rv Corrections: (The following items were deleted from the chart) 17:37 17:26 Presenting complaint: Patient states: she has been seen here 2 times before for sv the same pain and the pain has not gotten any better nor any worse. Pt reports pain is now on her left side pain that radiates up into the LUQ with a "bulge" that has come up and radiates down to her left buttock. Pt reports it intermittently goes to bilateral buttocks. c/o nausea and loose stools. Pt reports being "fidgety." sv 17:37 17:32 BP 141 / 127 Sitting Auto R Arm Regular; Pulse 106bpm; Resp 24bpm; Pulse Ox 98%; sv 90.72 kg; Height 5 ft. 4 in.; BMI: 34.3; Pain 8/10; sv
--- NOTE | 2018-01-30 20:45 | EDPHYS ---
Physician Documentation [facility] Name: Stefanie Valentin Age: 42 yrs Sex: Female : 1975 Arrival Date: 01/30/2018 Time: 17:05 Bed 2 Private MD: Wicho Elmore H ED Physician Nba Calle HPI: 01/30 18:00 This 42 yrs old Female presents to ER via Ambulatory with complaints of Flank pm1 pain. 18:00 The patient complains of pain in the left low back and right low back. The pain does pm1 not radiate. 18:00 Onset: The symptoms/episode began/occurred 3 week(s) ago. Modifying factors: The pm1 symptoms are alleviated by nothing. the symptoms are aggravated by nothing. Associated signs and symptoms: Pertinent negatives: diarrhea, dysuria, fever, headache, nausea, vomiting. Severity of pain: in the emergency department the pain is unchanged. The patient has been recently seen at the [facility] Emergency Department, last week, for similar complaints labs were performed, CT scan was performed, was given a prescription for pain medications. Patient with bilateral flank pain for the past three weeks. Seen her in the ER twice before. Dx with cystitis and then constipation. 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 - Social history:: Smoking status: Patient/guardian denies using tobacco, Patient/guardian denies using alcohol. - Ebola Screening: : No symptoms or risks identified at this time. ROS: 18:00 Constitutional: Negative for fever, chills, and weight loss, Eyes: Negative for injury, pm1 pain, redness, and discharge, ENT: Negative for injury, pain, and discharge, Neck: Negative for injury, pain, and swelling, Cardiovascular: Negative for chest pain, palpitations, and edema, Respiratory: Negative for shortness of breath, cough, wheezing, and pleuritic chest pain, Abdomen/GI: Negative for abdominal pain, nausea, vomiting, diarrhea, and constipation. 18:00 : Negative for injury, bleeding, discharge, and swelling, MS/Extremity: Negative for injury and deformity, Skin: Negative for injury, rash, and discoloration, Neuro: Negative for headache, weakness, numbness, tingling, and seizure. 18:00 Back: Positive for flank pain, bilaterally, Left hip pain with radiation to left upper leg. Exam: 18:00 Constitutional: This is a well developed, well nourished patient who is awake, alert, pm1 and in no acute distress. Head/Face: Normocephalic, atraumatic. Eyes: Pupils equal round and reactive to light, extra-ocular motions intact. Lids and lashes normal. Conjunctiva and sclera are non-icteric and not injected. Cornea within normal limits. Periorbital areas with no swelling, redness, or edema. ENT: Nares patent. No nasal discharge, no septal abnormalities noted. Tympanic membranes are normal and external auditory canals are clear. Oropharynx with no redness, swelling, or masses, exudates, or evidence of obstruction, uvula midline. Mucous membranes moist. Neck: Trachea midline, no thyromegaly or masses palpated, and no cervical lymphadenopathy. Supple, full range of motion without nuchal rigidity, or vertebral point tenderness. No Meningismus. Chest/axilla: Normal chest wall appearance and motion. Nontender with no deformity. No lesions are appreciated. Cardiovascular: Regular rate and rhythm with a normal S1 and S2. No gallops, murmurs, or rubs. Normal PMI, no JVD. No pulse deficits. Respiratory: Lungs have equal breath sounds bilaterally, clear to auscultation and percussion. No rales, rhonchi or wheezes noted. No increased work of breathing, no retractions or nasal flaring. Abdomen/GI: Soft, non-tender, with normal bowel sounds. No distension or tympany. No guarding or rebound. No evidence of tenderness throughout. 18:00 Skin: Warm, dry with normal turgor. Normal color with no rashes, no lesions, and no evidence of cellulitis. MS/ Extremity: Pulses equal, no cyanosis. Neurovascular intact. Full, normal range of motion. 18:00 Back: pain, of the left low back and right low back, normal spinal alignment noted, vertebral tenderness, is not appreciated. 18:00 Neuro: Orientation: is normal, Motor: is normal, moves all fours, strength is normal, strength is 5/5 in all extremities, Sensation: is normal, no obvious gross deficits. Vital Signs: 17:32 BP 141 / 127 RA Sitting (auto/reg); Pulse 106; Resp 24; Temp 99.4(TE); Pulse Ox 98% ; sv Weight 90.72 kg; Height 5 ft. 4 in. (162.56 cm); Pain 8/10; 18:03 BP 117 / 98; Pulse 101; Resp 18; Pulse Ox 100% on R/A; dh3 18:25 BP 130 / 78; Pulse 87; Resp 17; Pulse Ox 100% on R/A; hb 19:00 BP 139 / 58; Pulse 88; Resp 18; Pulse Ox 100% ; bp 19:41 BP 122 / 107; Pulse 69; Resp 16; Pulse Ox 100% on R/A; rv 20:00 BP 121 / 73; Pulse 75; Resp 16; Pulse Ox 100% ; rv 21:00 BP 111 / 68; Pulse 90; Resp 18; Pulse Ox 97% ; rv 17:32 Body Mass Index 34.33 (90.72 kg, 162.56 cm) sv MDM: 17:40 Patient medically screened. pm1 20:20 ED course: Patient with two CT scans in the past 1 month. Will not rescan the patient pm1 today since the symptoms of presentation are the same for the past two weeks. 20:43 Data reviewed: vital signs. Data interpreted: Pulse oximetry: on room air is 100 %. pm1 Interpretation: normal. Counseling: I had a detailed discussion with the patient and/or guardian regarding: the historical points, exam findings, and any diagnostic results supporting the discharge/admit diagnosis, lab results, the need for outpatient follow up, to return to the emergency department if symptoms worsen or persist or if there are any questions or concerns that arise at home, Radiology results from 01/25/2018. 01/30 17:47 Order name: Basic Metabolic Panel; Complete Time: 18:29 pm1 01/30 17:47 Order name: CBC with Diff; Complete Time: 18:29 pm1 01/30 17:47 Order name: Hepatic Function; Complete Time: 18:29 pm1 01/30 17:47 Order name: Lipase; Complete Time: 18:29 pm1 01/30 19:24 Order name: Urine Dipstick--Ancillary (enter results); Complete Time: 20:05 ms 01/30 19:24 Order name: Urine --Ancillary (enter results); Complete Time: 20:05 ms 01/30 17:47 Order name: Urine Test (obtain specimen); Complete Time: 19:17 pm1 01/30 17:47 Order name: IV Saline Lock; Complete Time: 18:03 pm1 01/30 17:47 Order name: Labs collected and sent; Complete Time: 18:03 pm1 01/30 17:47 Order name: Urine Dipstick-Ancillary (obtain specimen); Complete Time: 19:17 pm1 Administered Medications: 18:06 Drug: morphine 4 mg Route: IVP; Site: left antecubital; hb 21:24 Follow up: Response: No adverse reaction rv 18:06 Drug: Zofran 4 mg Route: IVP; Site: left antecubital; hb 21:24 Follow up: Response: No adverse reaction rv 18:06 Drug: NS 0.9% 1000 ml Route: IV; Rate: 1000 ml; Site: left antecubital; hb Disposition: 01/31 12:33 Co-signature as Attending Physician, Nba Calle MD. gs Disposition: 01/30/18 20:44 Discharged to Home. Impression: Low back pain, Unspecified renal colic. - Condition is Stable. - Discharge Instructions: Flank Pain, Kidney Stones, Sciatica. - Prescriptions for Tylenol- Codeine #3 300-30 mg Oral Tablet - take 2 tablets by ORAL route every 6 hours As needed; 20 tablet. Cyclobenzaprine 10 mg Oral Tablet - take 1 tablet by ORAL route every 8 hours As needed; 30 tablet. - Work release form, Medication Reconciliation Form, Thank You Letter form. - Follow up: Emergency Department; When: As needed; Reason: Worsening of condition. Follow up: Wicho Elmore DO; When: 2 - 3 days; Reason: Recheck today's complaints, Continuance of care, Re-evaluation by your physician. - Problem is new. - Symptoms have improved. Signatures: Dispatcher [employer] EDMS Reema Dooley, RN RN sv Sae Cuellar, METHODOLOGIST METHODOLOGIST pm1 Naila Lora RN RN hb Nba Calle MD MD gs Peltier, Brian, RN RN bp Vicente, Ronaldo RN rv Corrections: (The following items were deleted from the chart) 01/30 20:46 20:44 01/30/2018 20:44 Discharged to Home. Impression: Low back pain. Condition is pm1 Stable. Forms are Medication Reconciliation Form, Thank You Letter, Antibiotic Education, Prescription Opioid Use. Follow up: Emergency Department; When: As needed; Reason: Worsening of condition. Follow up: Wicho Elmore; When: 2 - 3 days; Reason: Recheck today's complaints, Continuance of care, Re-evaluation by your physician. Problem is new. Symptoms have improved. pm1 22:11 20:46 01/30/2018 20:44 Discharged to Home. Impression: Low back pain; Unspecified renal bp colic. Condition is Stable. Discharge Instructions: Back Pain, Adult. Forms are Medication Reconciliation Form, Thank You Letter. Follow up: Emergency Department; When: As needed; Reason: Worsening of condition. Follow up: TereAntionette Elmore; When: 2 - 3 days; Reason: Recheck today's complaints, Continuance of care, Re-evaluation by your physician. Problem is new. Symptoms have improved. pm1
[2018-01-30 22:15] VITALS: TEMP 99.4
[2018-01-30 22:22] VITALS: BP 111/68; O2SAT 97
== END 2018-01-30 22:11 | disposition home or self-care (01) ==
LOC: ER 17:03
DX: M54.5 Low back pain (principal); N23 Unspecified renal colic; I10 Essential (primary) hypertension; E03.9 Hypothyroidism, unspecified; G43.909 Migraine, unspecified, not intractable, without status migrainosus
CPT/HCPCS: 36415; 80048; 80076; 81003; 81025; 83690; 85025; 96374; 96375; 99284; J2405; J7030

== ENCOUNTER 2025-04-08 13:31 | Emergency (ER) | payer BC ==
--- OUTSIDE RECORDS SUMMARY | 2025-04-08 13:35 | XMS REPORT | Continuity of Care Document ---
Author Name Unknown Address [address] [facility] [address] [place] [address] [facility] [place] Address 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 Name Role Phone JUANITO LANDAVERDE Primary Care Physician Unavailab XIN Christianson Attending Clinician Unavailable Doctor Unassigned, Edson Attending Clinician U Xin Petersen DNP Attending Clinician YEFRI GARCIA Attending Clinician Unavailable YEFRI GARCIA Attending Clinician Unavailable Doctor Unassigned, Edson Attending Clinician U navailable Payers Payer Name Policy Type Policy Number Effective Date Expirati on Date Source [facility] [id number] 2024 00:00:00 Allergies, Adverse Reactions, Alerts Allergy Name Allergy Type Status Severity Reaction(s) Onset Date Inactive Date Treating Clinician Comments Source ASPIRIN DRUG INGREDI Active High Hives 2017-08 00:00: 00 [facility] CODEINE DRUG INGREDI Active High ITCHING 2017-08 00:00: 00 [facility] Aspirin Propensi ty to adverse reaction s Active Hives 2017-08 00:00: 00 [facility] Codeine Propensi ty to adverse reaction s Active Itching 2017-08 00:00: 00 [facility] Social History Social Habit Start Date Stop Date Quantity Comments Source [facility] Alcoholic beverage intake 2025-04-03 00:00:00 2025-04-03 00:00:00 Current non-drinker of alcohol (finding) [facility] History of Social function 2019-03-10 00:00:00 2019-03-10 00:00:00 [facility] Alcohol intake 2018-10-26 00:00:00 2018-10-26 00:00:00 Current non-drinker of alcohol (finding) [facility] Tobacco use and exposure 2018-07-13 00:00:00 2018-07-13 00:00:00 Smokeless tobacco non-user [facility] Sex assigned at 1975 00:00:00 1975 00:00:00 [facility] Smoking Status Start Date Stop Date Source Never smoked tobacco [facility] Medications Ordered Medication Name Filled Medication Name Start Date Stop Date Current Medication? Ordering Clinician Indication Dosage Frequency Signature (SIG) Comments Components Source amoxicillin -pot clavulanate (AUGMENTIN) 500-125 mg tablet 04-07 00:00: 00 04-15 04:59 :00 Yes [id number] 500mg Take 1 tablet by mouth in the morning and 1 tablet in the evening. Do all this for 7 days. [facility] Nitrofurant oin&Nit. Macrocryst (MACROBID) 100 mg capsule 04-06 00:00: 00 04-14 04:59 :00 Yes [id number] 100mg Take 1 capsule by mouth in the morning and 1 capsule in the evening. Do all this for 7 days. [facility] citalopram (CELEXA) 40 mg tablet 04-03 10:28: 51 Yes 40mg Take 40 mg by mouth daily. [facility] phentermine 37.5 mg capsule 04-03 10:28: 51 Yes 37.5mg Take 1 capsule by mouth every morning. [facility] topiramate 50 mg CSpX 04-03 10:28: 51 Yes Take by mouth. [facility] busPIRone 10 mg Cap 04-03 10:28: 51 Yes Take by mouth. [facility] tirzepatide (MOUNJARO) 12.5 mg/0.5 mL subcutaneou s injection pen 04-03 10:28: 51 Yes inject under the skin weekly. [facility] FEMYNOR 0.25-35 mg-mcg per tablet 09-23 00:00: 00 Yes [id number] TAKE 1 TABLET BY MOUTH EVERY DAY [facility] telmisartan 40 mg tablet 10-25 16:22: 27 Yes [facility] Levothyroxi ne 100 mcg capsule 10-25 16:21: 37 Yes Take by mouth. [facility] citalopram (CELEXA) 40 mg tablet 10-25 16:21: 37 Yes 40mg Take 40 mg by mouth daily. [facility] phentermine 37.5 mg capsule 10-25 16:21: 37 Yes 37.5mg Take 37.5 mg by mouth every morning. [facility] topiramate 50 mg CSpX 10-25 16:21: 37 Yes Take by mouth. [facility] IBUPROFEN ORAL 09-28 15:53: 57 Yes Take by mouth. [facility] Immunizations Ordered Immunization Name Filled Immunization Name Date Status Comments Source Influenza Virus Vaccine Quad .5 mL IM 6+ MO (FLUZONE/FLULAVAL/F LUARIX) 2018-07-13 00:00:00 Completed Influenza Virus Vaccine Quad .5 mL IM 6+ MO (FLUZONE/FLULAVAL/F LUARIX) Unknown Completed [facility] Vital Signs Vital Name Observation Time Observation Value Comments S anais Systolic blood pressure 2025-04-03 15:26:00 111 mm[Hg] [facility] Diastolic blood pressure 2025-04-03 15:26:00 75 mm[Hg] [place] [facility] Heart rate 2025-04-03 15:26:00 83 /min [facility] Body temperature 2025-04-03 15:26:00 36.72 Sherri [facility] Respiratory rate 2025-04-03 15:26:00 18 /min [facility] Body height 2025-04-03 15:26:00 162.6 cm [facility] Body weight 2025-04-03 15:26:00 81.285 kg [facility] BMI 2025-04-03 15:26:00 30.76 kg/m2 [facility] Oxygen saturation in Arterial blood by Pulse oximetry 2025-04-03 15:26:00 96 /min [place] [facility] Procedures Procedure Date / Time Performed Performing Clinicia n Source POCT URINALYSIS W/O SPECIFIC GRAVITY 2025-04-03 16:06:00 Xin Cardenas [facility] Encounters Start Date/Time End Date/Time Encounter Type Admission Type Attending [facility] Facility Care Department Encounter ID Source 2025-04-06 00:00:00 2025-04-07 08:49:26 Patient Secure Msg Doctor Unassigned, Edson Doctor Unassigned, Edson [place] [id number] [id number] 134 [id number] [facility] 2025-04-07 00:00:00 2025-04-07 07:54:20 Case Management Xin Cardenas [place] [id number] [id number] 134 [id number] [facility] 2025-04-06 00:00:00 2025-04-06 12:43:26 Case Management Xin Cardenas [place] [id number] [id number] 134 [id number] [facility] 2025-04-06 00:00:00 2025-04-06 11:56:30 Telephone Xin Cardenas [facility] 1.2.114 [id number] [id number] [facility] 2025-04-05 00:00:00 2025-04-05 16:03:22 Patient Secure Msg Xin Cardenas [facility] 1..114 [id number] [id number] [id number] 134 [id number] [facility] 2025-04-03 10:00:00 2025-04-03 11:07:17 Office Visit R XIN CARDENAS [facility] 1..114 [id number] [id number] [id number] [facility] 2024-11-11 13:30:00 2024-11-11 13:30:00 Outpatient YEFRI GOMEZ [facility] [id number] [facility] 2024-11-11 13:30:00 2024-11-11 13:30:00 Outpatient YEFRI GOMEZ VIEN [facility] [id number] [facility] 2024-07-22 13:30:00 2024-07-22 13:30:00 Outpatient YEFRI GOMEZ [facility] [id number] [facility] 2021-06-06 00:00:00 2021-06-06 00:00:00 Patient Secure Msg Doctor Unassigned, Edson [facility] [id number] [id number] [id number] [id number] 134 [id number] [facility] 2019-12-05 08:30:00 2019-12-05 08:30:00 Outpatient YEFRI GOMEZ [facility] [id number] [facility] Results Test Description Test Time Test Comments Results Result Co mments Source [facility] Notes Date/Time Note Provider Source 2025-04-06 08:32:21 Images from the original note were not included. Pt has also sent MCM. Message has been responded to. Pt was advised to proceed to ER. Pt reviewed message via MCM. Kacey Chaves RN [facility] 2025-04-06 08:17:29 Jacquie Morgan is a 49 year old female Patient is calling in regards to her now currently running a fever, both of her sides are hurting, and she is having headaches. Patient has not heard anything about her results and has not been given any medication. Please advise. [facility]/pharmacy #[id number] - [place], [place] - [address] AT [place] [address] [place] [address] Priscilla Stokes [facility]
[2025-04-08] MEDS ORDERED: NA CHLORIDE 0.9% 2,000 ML ONE (15:01)
[2025-04-08 15:47] LABS: Absolute Lymphocytes (CBC) 1.7 K/uL (0.7-4.9); Hematocrit 39.3 % (36.0-45.0); Hemoglobin 13.3 g/dL (12.0-15.0); MCH 29.7 pg (27.0-35.0); MCHC 33.8 g/dL (32.0-36.0); MCV 87.8 fL (80-100); MPV 8.1 fL (7.6-11.3); Nucleated RBC Absolute Count 0.0 (0-0); Nucleated Red Blood Cells % 0.0 % (0-0); RBC Red Blood Cell Count 4.47 M/uL (3.86-4.86); White Blood Count 24.10 thou/uL (4.3-10.9)
[2025-04-08 16:01] LABS: PT Prothrombin Time 15.3 SECONDS (10-13.0); PTT, Activated Partial Thromb 33.0 SECONDS (27.2-37.4); Protime INR 1.37
[2025-04-08 16:10] LABS: ALT/SGPT 85.0 U/L (13-56); AST/SGOT 49.0 U/L (15-37); Albumin 3.5 g/dL (3.4-5.0); Albumin/Globulin Ratio 0.7 (1.1-1.8); Alkaline Phosphatase 278.0 U/L (45-117); Anion Gap 11.0 mEq/L (5.0-15.0); BUN Blood Urea Nitrogen 25.0 mg/dL (7-18); Globulin 4.7 g/dL (2.3-3.5); Glucose Level 72.0 mg/dL (74-106); Potassium 3.0 mEq/L (3.5-5.1)
[2025-04-08 16:36] LABS: Blood Morphology Comment NOT SEEN (NOT SEEN); Differential Total Cells Count 100; Segmented Neutrophils 76 % (40-80)
--- NOTE | 2025-04-08 18:35 | RAD REPORT ---
EXAMINATION: CT Abdomen Pelvis Wo Contrast CLINICAL INDICATION: Female, 49 years old. FLANK PAIN TECHNIQUE: CT abdomen and pelvis was performed, without IV contrast, as per department protocol. Axia l, sagittal and coronal reconstructions were obtained. One or more of the following dose reduction techniques were used: Automated exposure control, adjustment of the mA and kV according to the patien t size, and iterative reconstruction. Unless otherwise specified, incidental findings do not require dedicated imaging follow-up. COMPARISON: 01/25/2018. FINDINGS: The lack of intravenous contrast limits the sensitivity of this exam for evaluation of solid visceral organs, vascular structures, and retroperitoneum. LOWER CHEST: The visualized lung bases are clear. LIVER: Normal in size and contour. No focal lesion. BILIARY SYSTEM: No suspicious abnormalities. SPLEEN: Normal size. No focal lesion. PANCREAS: No mass, ductal dilation, or samantha-pancreatic fluid. ADRENALS: Normal; no mass. KIDNEYS AND URETERS: Normal size and contour. Nonobstructing calculi largest measuring 1.2 cm of the right upper pole and 3 mm at the left lower pole. Stable prominence of the right renal pelvis. Numerous cortical cysts largest projecting posteriorly at the right interpolar region measuring 3.3 c m, progressive since prior exam. Left perinephric fat stranding. Mild right hydronephrosis. 4 mm right distal ureter calculus. URINARY BLADDER: Normal contour. GASTROINTESTINAL TRACT: No evidence of bowel obstruction, significant free fluid, free air or abscess . APPENDIX: Normal appendix. LYMPH NODES: No lymphadenopathy. MUSCULOSKELETAL: No acute or suspicious osseous abnormality. ADDITIONAL FINDINGS: None. IMPRESSION: Mild right hydronephrosis with 4 mm right distal ureter calculus. Left perinephric fat stranding, nonspecific, could relate to postobstructive changes, although ongoin g infection cannot be excluded. Other incidental findings as above. THIS REPORT CONTAINS FINDINGS THAT MAY BE CRITICAL TO PATIENT CARE. The findings were verbally commun icated via telephone to NICOL Walker on 04/08/2025 6:33 PM.
[2025-04-08 18:38] LABS: Sqamous Epithelial <5 /HPF (None Seen); Urine Crystals Unidentified Few /HPF (None Seen); Urine Culture Reflex Order REFLEXED; Urine Microscopic Reflex YN ORDER UMIC; Urine WBC Clump Occasional /HPF (None Seen)
[2025-04-08] MEDS ORDERED: CEFTRIAXONE 1000 MG/VIAL ONE (19:13)
--- NOTE | 2025-04-08 19:15 | EDPHYS ---
Physician Documentation [facility] Name: Stefanie Morgan Age: 49 yrs Sex: Female : 1975 Arrival Date: 04/08/2025 Time: 13:31 Bed 7 Private MD: ED Physician Maria Nevarez HPI: 04/08 13:56 This 49 yrs old Female presents to ER via Ambulatory with complaints of Back Injury, kb Possible Kidney Stone. 13:56 Patient is a 49-year-old female presents for bilateral flank pain, malodorous urine, kb cloudy urine that started 1 week ago and is getting worse. Reports fever up to 102.3. States she went to her PCP on Thursday was diagnosed with a UTI and started on antibiotics but she did not start them until yesterday.. 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 - Infectious Disease History:: Denies. - Social history:: Smoking status: Patient denies any tobacco usage or history of. ROS: 13:56 Constitutional: As per HPI kb Exam: 13:56 Constitutional: This is a well developed, well nourished patient who is awake, alert, kb and in no acute distress. Head/Face: Normocephalic, atraumatic. ENT: Moist Mucous membranes Cardiovascular: Tachycardic rate Respiratory: Respirations even and unlabored. No increased work of breathing. Talking in full sentences Skin: Warm, dry with normal turgor. Normal color. MS/ Extremity: Pulses equal, no cyanosis. Neurovascular intact. Full, normal range of motion. Neuro: Awake and alert, GCS 15, oriented to person, place, time, and situation. 13:56 Abdomen/GI: Inspection: abdomen appears normal, Bowel sounds: normal, Palpation: soft, in all quadrants, mild abdominal tenderness, in all quadrants, 13:56 Back: CVA tenderness, that is moderate, is noted bilaterally, Vital Signs: 13:51 BP 100 / 64; Pulse 105; Resp 17; Temp 97.6; Pulse Ox 100% ; Weight 78.47 kg; Height 5 ll1 ft. 4 in. ; Pain 9/10; 15:58 BP 95 / 54; Pulse 88; Resp 15; Pulse Ox 98% ; bp 16:48 BP 105 / 71; Pulse 108; Resp 18 S; Pulse Ox 96% on R/A; aa5 19:08 BP 115 / 56; Pulse 104; Resp 17; Pulse Ox 99% ; cp4 21:54 BP 110 / 62; Pulse 104; Resp 18; Pulse Ox 100% ; cp4 13:51 Body Mass Index 29.70 (78.47 kg, 162.56 cm) ll1 13:51 Pain Scale: Adult ll1 MDM: 13:45 Medical Screening Exam initiated kb 14:27 Differential diagnosis: nephrolithiasis, pyelonephritis, UTI. Data reviewed: vital kb signs, nurses notes. Historians other than the Patient: Spouse/Significant Other: Spouse. ED course: Patient is a 49-year-old female who presents for bilateral flank pain, fever, urinary symptoms that began 1 week ago and have gotten worse. On exam patient has mild abdominal tenderness diffusely and moderate CVA tenderness bilaterally. Will give fentanyl for pain, Zofran for nausea and IV fluids. Will order CBC, CMP, lipase, UA and CT scan for further evaluation.. 19:12 Consideration of Admission/Observation Escalation of care including kb admission/observation considered. pt will be transferred for urology. Management of patient was discussed with the following: Manager Qa: Dr Urbina consulted and is out of town. Will transfer for stent. Counseling: I had a detailed discussion with the patient and/or guardian regarding the historical points, exam findings, and any diagnostic results supporting the discharge/admit diagnosis, lab results, radiology results, the need to transfer to another facility, [facility] does not immediately have the required specialist. 21:22 Management of patient was discussed with the following: Dr Matthews, hospitalist at [facility], accepts pt for transfer. 04/08 13:55 Order name: Blood Culture Adult (2) 04/08 13:55 Order name: CBC with Diff; Complete Time: 16:43 04/08 13:55 Order name: CMP; Complete Time: 16:11 kb 04/08 13:55 Order name: Lactate w/ 2H reflex if indic.; Complete Time: 16:20 kb 04/08 13:55 Order name: Protime (+inr); Complete Time: 16:03 kb 04/08 13:55 Order name: Ptt, Activated; Complete Time: 16:03 kb 04/08 13:55 Order name: UA Rfx Des Cult if indicated; Complete Time: 18:45 kb 04/08 13:55 Order name: Test, Urine; Complete Time: 18:45 kb 04/08 15:53 Order name: Manual Differential; Complete Time: 16:43 EDMS 04/08 18:41 Order name: Urine Culture EDMS 04/08 21:10 Order name: Gram Stain--Aerobic Bottle EDMS 04/08 16:23 Order name: Abdomen ; Complete Time: 18:45 EDMS 04/08 13:55 Order name: Cardiac monitoring; Complete Time: 15:36 kb 04/08 13:55 Order name: IV Saline Lock - Large Bore; Complete Time: 15:36 kb 04/08 13:55 Order name: Labs collected and sent; Complete Time: 15:36 kb 04/08 13:55 Order name: O2 Per Protocol; Complete Time: 15:36 kb 04/08 13:55 Order name: O2 Sat Monitoring; Complete Time: 15:36 kb 04/08 13:55 Order name: Vital Signs; Complete Time: 15:36 kb Administered Medications: 15:36 Drug: NS 0.9% IV (30 ml/kg) 30 ml/kg IV at bolus once; Sepsis Protocol; to be given as bp a bolus over 90 minutes Route: IV; Rate: bolus; Site: right antecubital; 20:44 Follow up: Response: No adverse reaction; IV Status: Completed infusion tb4 19:26 Drug: Rocephin IV 1 grams IV at calculated rate once; Given slow IV push per pharmacy cp4 instructions Route: IV; Rate: calculated rate; Site: right antecubital; 19:27 Follow up: IV Status: Completed infusion cp4 20:23 Follow up: Response: No adverse reaction; IV Status: Completed infusion tb4 19:27 Drug: morphine IVP or IV 4 mg IVP once over 4 mins Route: IVP; Infused Over: 4 mins; cp4 Site: right antecubital; 20:43 Follow up: Response: No adverse reaction; Pain is decreased; RASS: Alert and Calm (0) tb4 19:27 Drug: Ondansetron IVP 4 mg IVP once; over 2 minutes Route: IVP; Site: right antecubital;cp4 20:43 Follow up: Response: No adverse reaction; Nausea is decreased tb4 20:23 Drug: Potassium Chloride PO Liquid 40 mEq PO once Route: PO; tb4 20:43 Follow up: Response: No adverse reaction tb4 21:39 Drug: Acetaminophen PO 1000 mg PO once Route: PO; cp4 21:55 Follow up: Response: No adverse reaction cp4 Disposition Summary: 04/08/25 19:15 Transfer Ordered Notes: Transfer Location: [facility] kb Reason: Higher level of care kb Condition: Stable kb Problem: new kb Symptoms: are unchanged kb Accepting Physician: Dr Matthews(04/08/25 21:57) cp4 Diagnosis - Sepsis, unspecified organism kb - Calculus of ureter kb - Pyelonephritis acute kb Forms: - Medication Reconciliation Form kb - SBAR form kb Signatures: Dispatcher [employer] EDMS Tami Arellano, WOOD MILLING MACHINE OPERATOR-C WOOD MILLING MACHINE OPERATOR-Ckb Andi Valderrama, RN RN bp Fiordaliza Johnston, RN RN ll1 Sally Estrella cp4 Lissy Aaron, RN RN tb4 Corrections: (The following items were deleted from the chart) 13:56 13:56 BLOOD CULTURE*+BA.LAB.BRZ ordered. EDMS EDMS 13:56 13:56 CBC+H.LAB.BRZ ordered. EDMS EDMS 13:56 13:56 COMPREHENSIVE METABOLIC PANEL+C.LAB.BRZ ordered. EDMS EDMS 13:56 13:56 LACTATE+C.LAB.BRZ ordered. EDMS EDMS 13:56 13:56 PROTIME (+INR)+COAG.LAB.BRZ ordered. EDMS EDMS 13:56 13:56 PTT, ACTIVATED+COAG.LAB.BRZ ordered. EDMS EDMS 13:56 13:56 UA Rfx Des Cult if indicated+U.LAB.BRZ ordered. EDMS EDMS 13:56 13:56 Test, Urine+UC.LAB.BRZ ordered. EDMS EDMS 16:23 14:29 Abdomen Pelvis W Con+CT.RAD.BRZ ordered. EDMS EDMS : 19:15 Dr gabrielle anthony 21:57 21:22 Dr Cassie anthony cp4
--- NOTE | 2025-04-08 19:15 | ER ---
Nurse's Notes [facility] Name: Stefanie Morgan Age: 49 yrs Sex: Female : 1975 Arrival Date: 04/08/2025 Time: 13:31 Bed 7 Private MD: Diagnosis: Sepsis, unspecified organism;Calculus of ureter;Pyelonephritis acute Presentation: 04/08 13:51 Chief complaint: Patient states: Urinary frequency, cloudy, foul smell for at least 1 ll1 week. "back and bladder infection" since Thursday. Started antibiotics, not getting better. Fever up to 102.3. Body aches, chills, and Bilateral flank pain. Coronavirus screen: Client denies travel out of the [place] in the last 14 days. At this time, the client does not indicate any symptoms associated with coronavirus-19. Ebola Screen: Patient denies travel to an Ebola-affected area in the 21 days before illness onset. Initial Sepsis Screen: Does the patient meet any 2 criteria? No. Patient's initial sepsis screen is negative. Does the patient have a suspected source of infection? No. Patient's initial sepsis screen is negative. Risk Assessment: Do you want to hurt yourself or someone else? Patient reports no desire to harm self or others. Onset of symptoms was April 01, 2025. 13:51 Method Of Arrival: Ambulatory ll1 13:51 Acuity: DARREN 3 ll1 Triage Assessment: 14:00 General: Appears in no apparent distress. uncomfortable, Behavior is cooperative, bp appropriate for age, anxious. Pain: Complains of pain in back. EENT: No deficits noted. Neuro: No deficits noted. Cardiovascular: No deficits noted. Respiratory: No deficits noted. GI: No signs and/or symptoms were reported involving the gastrointestinal system. : Reports pain in lower back. Derm: No deficits noted. Musculoskeletal: No deficits noted. 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 - Infectious Disease History:: Denies. - Social history:: Smoking status: Patient denies any tobacco usage or history of. Screenin:59 [facility] ED Fall Risk Assessment (Adult) History of falling in the last 3 months, bp including since admission No falls in past 3 months (0 pts) Confusion or Disorientation No (0 pts) Intoxicated or Sedated No (0 pts) Impaired Gait No (0 pts) Mobility Assist Device Used No (0 pt) Altered Elimination No (0 pt) Score/Fall Risk Level 0 - 2 = Low Risk Oriented to surroundings. Abuse screen: Denies threats or abuse. Denies injuries from another. Nutritional screening: No deficits noted. Tuberculosis screening: No symptoms or risk factors identified. Assessment: 14:57 Reassessment: Patient and/or family updated on plan of care and expected duration. Pain jl7 level reassessed. 16:35 Reassessment: Pt shaking, pt c/o feeling cold, pt was provided additional warm aa5 blankets, pt concerned about BP, unable to obtain accurate BP at this time due to shaking, pt reassured and verbalized understanding that ER staff will monitor BP and obtain accurate BP upon body shaking improving. Pt crying and appears upset, pt states "I just feel uncomfortable", denies need for pain medication or nausea medication at this time. . 16:35 Neuro: Level of Consciousness is awake, alert, obeys commands, Oriented to person, aa5 place, time, situation. Respiratory: Airway is patent Respiratory effort is even, unlabored, Respiratory pattern is regular, symmetrical. Derm: Skin is pink, warm \\T\\ dry. 16:48 Reassessment: Patient is alert, oriented x 3, equal unlabored respirations, skin aa5 warm/dry/pink. Vital Signs: 13:51 BP 100 / 64; Pulse 105; Resp 17; Temp 97.6; Pulse Ox 100% ; Weight 78.47 kg; Height 5 ll1 ft. 4 in. ; Pain 9/10; 15:58 BP 95 / 54; Pulse 88; Resp 15; Pulse Ox 98% ; bp 16:48 BP 105 / 71; Pulse 108; Resp 18 S; Pulse Ox 96% on R/A; aa5 19:08 BP 115 / 56; Pulse 104; Resp 17; Pulse Ox 99% ; cp4 21:54 BP 110 / 62; Pulse 104; Resp 18; Pulse Ox 100% ; cp4 13:51 Body Mass Index 29.70 (78.47 kg, 162.56 cm) ll1 13:51 Pain Scale: Adult ll1 ED Course: 13:36 Patient arrived in ED. gl 13:44 T[facility] Arell[facility]-C [facility]. kb 13:44 Maria Nevarez is Attending Physician. kb 13:53 Triage completed. ll1 14:57 Andi Valderrama, RN is Primary Nurse. bp 14:57 Arm band placed on Patient placed in an exam room, on a stretcher. jl7 15:34 Initial lab(s) drawn, by me, sent to lab. Inserted saline lock: 20 gauge in right bp antecubital area, using aseptic technique. Blood collected. Flushed with 10 mL NS. 15:59 Patient has correct armband on for positive identification. bp 16:19 Radiology exam delayed due to test not completed at this time. mw3 16:46 No provider procedures requiring assistance completed. aa5 16:48 Radiology exam delayed due to test not completed at this time. mw3 17:23 Abdomen In Process Unspecified. EDMS 19:11 initiated transfer with [facility] \\T\\ [facility]. [facility] 21:00 pt was accepted by Caridad Burnett \\T\\ [id number]. Admin approval given by Rosette Abel \\Laura\\[address]. [address] [facility] to transfer pt once nurse to [facility] is complete. 22:02 Provided Education on: transfer. cp4 22:02 Patient transferred, IV remains in place. cp4 Administered Medications: 15:36 Drug: NS 0.9% IV (30 ml/kg) 30 ml/kg IV at bolus once; Sepsis Protocol; to be given as bp a bolus over 90 minutes Route: IV; Rate: bolus; Site: right antecubital; 20:44 Follow up: Response: No adverse reaction; IV Status: Completed infusion tb4 19:26 Drug: Rocephin IV 1 grams IV at calculated rate once; Given slow IV push per pharmacy cp4 instructions Route: IV; Rate: calculated rate; Site: right antecubital; 19:27 Follow up: IV Status: Completed infusion cp4 20:23 Follow up: Response: No adverse reaction; IV Status: Completed infusion tb4 19:27 Drug: morphine IVP or IV 4 mg IVP once over 4 mins Route: IVP; Infused Over: 4 mins; cp4 Site: right antecubital; 20:43 Follow up: Response: No adverse reaction; Pain is decreased; RASS: Alert and Calm (0) tb4 19:27 Drug: Ondansetron IVP 4 mg IVP once; over 2 minutes Route: IVP; Site: right antecubital;cp4 20:43 Follow up: Response: No adverse reaction; Nausea is decreased tb4 20:23 Drug: Potassium Chloride PO Liquid 40 mEq PO once Route: PO; tb4 20:43 Follow up: Response: No adverse reaction tb4 21:39 Drug: Acetaminophen PO 1000 mg PO once Route: PO; cp4 21:55 Follow up: Response: No adverse reaction cp4 Medication: 16:46 VIS not applicable for this client. aa5 Outcome: 19:15 ER care complete, transfer ordered by . kb 21:57 Patient left the ED. 4 22:02 Transferred by ground EMS to [facility], Transfer form completed. cp4 X-rays sent w/ patient. 22:02 Condition: stable 22:02 Instructed on the need for transfer, Signatures: Dispatcher [employer] EDMS Tami Arellano, NICOL-Kathe COOK 3 PASTRY-Rekha Roberts, RN RN aa5 Shine Le RN RN jl7 Andi Valderrama RN RN bp Willis, Michelle 3 Fiordaliza Johnston RN RN ll1 Sally Estrella 4 Armida Vaughn [facility] Aisha Witt, [facility] Lissy Winston, RN RN tb4 Corrections: (The following items were deleted from the chart) 13:56 13:51 BP 100 / 64; Pulse 109bpm; Resp 17bpm; Pulse Ox 100%; Temp 97.6F; ll1 ll1
[2025-04-08] MEDS ORDERED: MORPHINE 4 MG/ML SYR ONE (19:24)
[2025-04-08] MEDS ORDERED: ONDANSETRON 4 MG/2 ML VIAL ONE (19:24)
[2025-04-08] MEDS ORDERED: POTASSIUM CL SA 10 MEQ TAB PO ONE (20:03)
[2025-04-08] MEDS ORDERED: ACETAMINOPHEN 500 MG TAB ONE (21:34)
[2025-04-08 22:46] VITALS: TEMP 97.6
[2025-04-08 22:51] VITALS: BP 110/62; O2SAT 100
== END 2025-04-08 21:57 | disposition short-term general hospital (02) ==
LOC: ER 13:31
DX: N10 Acute pyelonephritis (principal); A41.9 Sepsis, unspecified organism; N20.1 Calculus of ureter; Z87.442 Personal history of urinary calculi
CPT/HCPCS: 96365; 87040 ×2; 87088; 85025; 81001; 87086; 36415; 87205; 81025; 85610; 83605; 85730; 80053; 74176; 96375; 99285; 96366; J2405; J7030; J0696

== ENCOUNTER 2025-06-30 00:02 | Emergency (ER) | payer BC ==
[2025-06-30 00:50] LABS: Hemoglobin 14.3 g/dL (12.0-15.0); Nucleated RBC Absolute Count 0.0 (0-0); Nucleated Red Blood Cells % 0.2 % (0-0)
[2025-06-30] MEDS ORDERED: CLOPIDOGREL 75 MG TABLET ONE (00:57)
[2025-06-30] MEDS ORDERED: LORazepam 2 MG/ML VIAL ONE (00:58)
[2025-06-30 01:02] LABS: Absolute Lymphocytes (CBC) 2.1 K/uL (0.7-4.9); Hematocrit 41.6 % (36.0-45.0); MCH 30.0 pg (27.0-35.0); MCHC 34.5 g/dL (32.0-36.0); MCV 86.9 fL (80-100); MPV 8.2 fL (7.6-11.3); RBC Red Blood Cell Count 4.79 M/uL (3.86-4.86); White Blood Count 4.10 thou/uL (4.3-10.9)
[2025-06-30 01:24] LABS: ALT/SGPT 23.0 U/L (13-56); AST/SGOT 15.0 U/L (15-37); Albumin 4.0 g/dL (3.4-5.0); Albumin/Globulin Ratio 1.1 (1.1-1.8); Alkaline Phosphatase 91.0 U/L (45-117); Anion Gap 9.7 mEq/L (5.0-15.0); BUN Blood Urea Nitrogen 17.0 mg/dL (7-18); Bilirubin Indirect, Calculated 0.6 mg/dL (0.2-0.8); Globulin 3.7 g/dL (2.3-3.5); Glucose Level 104.0 mg/dL (74-106); Magnesium 1.7 mg/dL (1.6-2.4); NT PRO-BNP 38.0 pg/mL (<125); Potassium 3.7 mEq/L (3.5-5.1); Troponin High Sensitivity 6.9 pg/mL (<58.9)
[2025-06-30 01:49] LABS: Differential Total Cells Count 100; Segmented Neutrophils 38 % (40-80)
[2025-06-30 01:50] LABS: Blood Morphology Comment NOT SEEN (NOT SEEN)
[2025-06-30 02:41] LABS: PT Prothrombin Time 12.5 SECONDS (10-13.0); Protime INR 1.11
--- NOTE | 2025-06-30 02:48 | RAD REPORT ---
PROCEDURE: XR Chest, 1 View CLINICAL INDICATION: The patient is 49 years old and is Female; Chest pain. TECHNIQUE: Frontal view of the chest. COMPARISON: None. FINDINGS: LUNGS: No discrete focal consolidation. PLEURAL SPACE: No appreciable pleural effusion or pneumothorax. MEDIASTINUM: Unremarkable cardiomediastinal contour. BONES/JOINTS: No acute osseous abnormality. IMPRESSION: No acute cardiopulmonary abnormality. Electronically signed by: Carlo Sahu MD 06/30/2025 02:40 AM CDT RP Due to temporary technical issues with the PACS/Family[employer] reporting system, reports are being corrie d by the in-house radiologist without review as a courtesy to ensure prompt reporting the interpreting radiologist is fully responsible for the content of the report. Transcribed Date/Time: 06/30/2025 2:47 AM
[2025-06-30 02:49] LABS: METHAMPHETAM NEGATIVE (NEGATIVE); THC Cannibis NEGATIVE (NEGATIVE)
[2025-06-30 02:50] LABS: Sqamous Epithelial <5 /HPF (None Seen); Urine Culture Reflex Order NOT NEEDED; Urine Microscopic Reflex YN ORDER UMIC
--- NOTE | 2025-06-30 03:16 | EDPHYS ---
Physician Documentation [facility] Name: Stefanie Morgan Age: 49 yrs Sex: Female : 1975 Arrival Date: 06/30/2025 Time: 00:02 Bed 15 Private MD: ED Physician Helio Lira HPI: 06/30 00:43 This 49 yrs old Female presents to ER via Ambulatory with complaints of Chest Pain, cp Anxiety. 00:43 The patient or guardian reports chest pain that is located primarily in the anterior cp chest wall, mid left side of chest. 00:43 Onset: this evening about 2330 while lying down. The pain does not radiate. Associated cp signs and symptoms: Pertinent negatives: abdominal pain, headache, lower extremity pain, lower extremity swelling, palpitations, shortness of breath, syncope, vomiting. The chest pain is described as sharp. 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 The patient has experienced similar episodes in the past, multiple times. Reports having increased anxiety since recent passing of mother earlier this year. Historical: - Allergies: 00:13 Aspirin (Hives); ha1 00:13 Codeine (Hives); ha1 - PMHx: 00:13 Hypertension; Hypothyroidism; kidney problems (Migraines); Kidney stones; Migraines; ha1 Anxiety; - PSHx: 00:13 section; kidney stent (ne); ha1 - Immunization history:: Adult Immunizations up to date. - Infectious Disease History:: Denies. - Social history:: Smoking status: Patient denies any tobacco usage or history of. ROS: 00:43 Constitutional: Negative for body aches, chills, fever, poor PO intake, cp 00:43 Cardiovascular: Positive for chest pain, Negative for edema, palpitations, 00:43 Respiratory: Negative for cough, shortness of breath, wheezing, 00:43 Abdomen/GI: Negative for abdominal pain, vomiting, diarrhea, constipation, 00:43 Neuro: Negative for altered mental status, dizziness, headache, numbness, syncope, near syncope, weakness, 00:43 All other systems are negative, Exam: 00:27 ECG was reviewed by the Attending Physician. cp 00:48 Constitutional: The patient appears in no acute distress, alert, awake, cp non-diaphoretic, non-toxic, well developed, well nourished, tearful 00:48 Head/Face: Normocephalic, atraumatic. cp 00:48 Eyes: Periorbital structures: appear normal, Conjunctiva: normal, no exudate, no injection, Sclera: no appreciated abnormality, Lids and lashes: appear normal, bilaterally, 00:48 ENT: External ear(s): are unremarkable, Nose: is normal, Mouth: Lips: moist, Oral mucosa: moist, Posterior pharynx: Airway: no evidence of obstruction, patent, 00:48 Neck: ROM/movement: is normal, is supple, without pain, no range of motions limitations, 00:48 Chest/axilla: Inspection: normal, 00:48 Cardiovascular: Rate: normal, Rhythm: regular, Edema: is not appreciated, JVD: is not appreciated, 00:48 Respiratory: the patient does not display signs of respiratory distress, Respirations: normal, no use of accessory muscles, no retractions, labored breathing, is not present, Breath sounds: are clear throughout, no decreased breath sounds, no stridor, no wheezing, 00:48 Abdomen/GI: Inspection: abdomen appears normal, Bowel sounds: active, all quadrants, Palpation: abdomen is soft and non-tender, in all quadrants, 00:48 Back: pain, is absent, ROM is normal, 00:48 Skin: cellulitis, is not appreciated, no rash present. 00:48 Neuro: Orientation: to person, place \T\ time. Mentation: is normal, Cerebellar function: is grossly normal, Motor: moves all fours, strength is normal, Sensation: is normal, Vital Signs: 00:03 BP 123 / 83; Pulse 95; Resp 18 S; Temp 97.2(T); Pulse Ox 100% on R/A; Weight 70.31 kg; ha1 Height 5 ft. 4 in. ; 01:14 BP 130 / 80; Pulse 80; Resp 18; Pulse Ox 100% on R/A; Pain 0/10; ja5 02:02 BP 131 / 70; Pulse 75; oe 02:02 Pulse 76; Resp 16; Pulse Ox 100% on 2 lpm NC; Pain 0/10; ja5 03:15 BP 135 / 77; Pulse 76; Resp 16; Temp 97.6; Pulse Ox 100% on R/A; Pain 0/10; ja5 00:03 Body Mass Index 26.61 (70.31 kg, 162.56 cm) ha1 01:14 Pain Scale: Adult ja5 02:02 Pain Scale: Adult ja5 03:15 Pain Scale: Adult ja5 [place] Coma Score: 00:20 Eye Response: spontaneous(4). Verbal Response: oriented(5). Motor Response: obeys ja5 commands(6). Total: 15. 02:02 Eye Response: spontaneous(4). Verbal Response: oriented(5). Motor Response: obeys ja5 commands(6). Total: 15. 03:15 Eye Response: spontaneous(4). Verbal Response: oriented(5). Motor Response: obeys ja5 commands(6). Total: 15. MDM: 00:09 Medical Screening Exam initiated cp 02:12 The patient was not given aspirin in the Emergency Department. Not indicated due to cp patient's past medical history. I considered the following discharge prescriptions or medication management in the emergency department Medications were administered in the Emergency Department. See MAR. Independent interpretation of the following test(s) in the Emergency Department EKG: See my EKG interpretation above X-Ray: My interpretation is negative for focal pneumonia. 03:15 Data reviewed: vital signs, nurses notes, lab test result(s), EKG, radiologic studies, cp plain films. 03:15 Differential diagnosis: abnormal EKG, acute myocardial infarction, pleurisy, pneumonia, cp pneumothorax, pulmonary embolus, stable angina, thoracic aortic disection, unstable angina. Consideration of Admission/Observation Escalation of care including admission/observation considered. Care significantly affected by the following chronic conditions: Diabetes, Hypertension. 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 Response to treatment: the patient's symptoms have markedly improved after treatment, and as a result, I will discharge patient. Special discussion: Based on the patient's history, exam, and Dx evaluation, there is no indication for emergent intervention or inpatient Tx. It is understood by the patient/guardian that if the Sx's persist or worsen they need to return immediately for re-evaluation. 06/30 00:21 Order name: Basic Metabolic Panel; Complete Time: 01:37 cp 06/30 01:37 Interpretation: Normal except: CRE 1.12; GFR 60. cp 06/30 00:21 Order name: CBC with Diff; Complete Time: 01:55 cp 06/30 01:37 Interpretation: Normal except: WBC 4.10; IWONA% 36.0; LYM% 51.3; NEUT A 1.5. cp 06/30 00:21 Order name: LFT's; Complete Time: 01:37 cp 06/30 01:37 Interpretation: Normal except: GLOB 3.7. cp 06/30 00:21 Order name: Magnesium; Complete Time: 01:37 cp 06/30 00:21 Order name: NT PRO-BNP; Complete Time: 01:37 cp 06/30 01:56 Interpretation: NT PRO-BNP 38; Reviewed. cp 06/30 00:21 Order name: PT-INR; Complete Time: 02:54 cp 06/30 00:21 Order name: Troponin HS; Complete Time: 01:37 cp 06/30 01:37 Interpretation: Reviewed. cp 06/30 00:21 Order name: Test, Urine; Complete Time: 02:54 cp 06/30 00:21 Order name: UDS; Complete Time: 02:54 cp 06/30 02:54 Interpretation: Normal except: BZO POSITIVE. cp 06/30 00:21 Order name: UA Rfx Des Cult if indicated; Complete Time: 02:54 cp 06/30 02:55 Interpretation: Normal except: UCLA Turbid; UESTR 75. cp 06/30 01:07 Order name: Manual Differential; Complete Time: 01:55 EDMS 06/30 01:55 Interpretation: Normal except: SEGS 38; BANDS [F] 2. cp 06/30 02:27 Order name: Troponin High Sensitivity; Complete Time: 03:04 cp 06/30 03:04 Interpretation: Reviewed. cp 06/30 00:21 Order name: XRAY Chest (1 view) cp 06/30 00:21 Order name: Cardiac monitoring; Complete Time: 00:38 cp 06/30 00:21 Order name: EKG - Nurse/Tech; Complete Time: 00:38 cp 06/30 00:21 Order name: IV Saline Lock; Complete Time: 00:38 cp 06/30 00:21 Order name: Labs collected and sent; Complete Time: 00:38 cp 06/30 00:21 Order name: O2 Per Protocol; Complete Time: 00:38 cp 06/30 00:21 Order name: O2 Sat Monitoring; Complete Time: 00:38 cp 06/30 01:08 Order name: Misc. Order: blue top recollect/ not filled enough; Complete Time: 01:19 vk EC:27 Rate is 89 beats/min. Rhythm is regular. NC interval is normal. QRS interval is normal. cp QT interval is normal. T waves are Inverted in lead aVR. Interpreted by me. Reviewed by me. Administered Medications: 01:06 Drug: Ativan IVP 1 mg IVP once Route: IVP; Site: left antecubital; 5 03:47 Follow up: Response: No adverse reaction; Marked relief of symptoms ja5 01:06 Drug: Clopidogrel PO 75 mg PO once Route: PO; 5 03:47 Follow up: Response: No adverse reaction ja5 Disposition: 21:42 Chart complete. cp 21:48 Co-signature as Attending Physician, Helio Lira MD I agree with the assessment sp4 and plan of care. I reviewed the patient's care provided by Advanced Practice Provider \T\ agree w/ the diagnosis \T\ care plan. I personally saw the pt \T\ performed a substantive portion of the visit, incldng all aspects of the (History/Exam/Medical Decision Making). Disposition Summary: 06/30/25 03:16 Discharge Ordered Notes: Location: Home cp Problem: new cp Symptoms: have improved cp Condition: Stable cp Diagnosis - Chest pain, unspecified cp - Anxiety disorder, unspecified cp Followup: cp - With: Fausto Robertson MD - When: 5 - 6 days - Reason: Recheck today's complaints Followup: cp - With: Cesar Vang MD - When: 5 - 6 days - Reason: Recheck today's complaints Discharge Instructions: - Discharge Summary Sheet cp - Panic Attack cp - Nonspecific Chest Pain, Adult cp - Managing Stress, Adult cp - Managing Anxiety, Adult cp Forms: - Medication Reconciliation Form cp - Antibiotic Education cp - Prescription Opioid Use cp - Patient Portal Instructions cp - Leadership Thank You Letter cp Signatures: Dispatcher [employer] EDMS Page, Guzman, PA-C PA-C cp Gray, Tali, RN RN ha1 Helio Lira MD MD sp4 Katey Noriega Joy ja5 Corrections: (The following items were deleted from the chart) 00:21 00:21 BASIC METABOLIC PANEL+C.LAB.BRZ ordered. EDMS EDMS 00:21 00:21 CBC+H.LAB.BRZ ordered. EDMS EDMS 00:21 00:21 HEPATIC FUNCTION+C.LAB.BRZ ordered. EDMS EDMS 00:21 00:21 MAGNESIUM+C.LAB.BRZ ordered. EDMS EDMS 00:21 00:21 PROBNP+C.LAB.BRZ ordered. EDMS EDMS 00:21 00:21 PROTIME (+INR)+COAG.LAB.BRZ ordered. EDMS EDMS 00:21 00:21 Troponin High Sensitivity+C.LAB.BRZ ordered. EDMS EDMS 00:21 00:21 Test, Urine+UC.LAB.BRZ ordered. EDMS EDMS 00:21 00:21 URINE DRUG SCREEN+UC.LAB.BRZ ordered. EDMS EDMS 00:21 00:21 UA Rfx Des Cult if indicated+U.LAB.BRZ ordered. EDMS EDMS 00:21 00:21 Chest Single View+RAD.RAD.BRZ ordered. EDMS EDMS 01:56 01:55 Reviewed. cp cp 02:27 02:27 Troponin High Sensitivity+C.LAB.BRZ ordered. EDMS EDMS
--- NOTE | 2025-06-30 03:16 | ER ---
Nurse's Notes [facility] [place] Name: Stefanie Morgan Age: 49 yrs Sex: Female : 1975 Arrival Date: 06/30/2025 Time: 00:02 Bed 15 Private MD: Diagnosis: Chest pain, unspecified;Anxiety disorder, unspecified Presentation: 06/30 00:03 Chief complaint: Patient states: SUDDEN ONSET OF CHEST PAIN, FELT DIAPHORETIC, AND ha1 COLD. FEELS VERY ANXIOUS. 00:03 Coronavirus screen: Client denies travel out of the [place] in the last 14 days. Ebola ha1 Screen: No symptoms or risks identified at this time. Initial Sepsis Screen: Does the patient meet any 2 criteria? No. Patient's initial sepsis screen is negative. Does the patient have a suspected source of infection? No. Patient's initial sepsis screen is negative. Risk Assessment: Do you want to hurt yourself or someone else? Patient reports no desire to harm self or others. Onset of symptoms was June 30, 2025. 00:03 Method Of Arrival: Ambulatory ha1 00:03 Acuity: DARREN 2 ha1 Triage Assessment: 00:13 General: Appears uncomfortable, Behavior is anxious. Pain: Complains of pain in chest ha1 Pain currently is 5 out of 10 on a pain scale. Quality of pain is described as. Neuro: Level of Consciousness is awake, alert, obeys commands, Oriented to person, place, time, situation. Cardiovascular: Reports chest pain, Capillary refill < 3 seconds Patient's skin is warm and dry. Respiratory: Airway is patent Respiratory effort is even, unlabored, Respiratory pattern is regular, symmetrical. Historical: - Allergies: 00:13 Aspirin (Hives); ha1 00:13 Codeine (Hives); ha1 - PMHx: 00:13 Hypertension; Hypothyroidism; kidney problems (Migraines); Kidney stones; Migraines; ha1 Anxiety; - PSHx: 00:13 section; kidney stent (ne); ha1 - Immunization history:: Adult Immunizations up to date. - Infectious Disease History:: Denies. - Social history:: Smoking status: Patient denies any tobacco usage or history of. Screenin:20 [facility] ED Fall Risk Assessment (Adult) History of falling in the last 3 months, ja5 including since admission No falls in past 3 months (0 pts) Confusion or Disorientation No (0 pts) Intoxicated or Sedated No (0 pts) Impaired Gait No (0 pts) Mobility Assist Device Used No (0 pt) Altered Elimination No (0 pt) Score/Fall Risk Level 0 - 2 = Low Risk Oriented to surroundings, Maintained a safe environment, Educated pt \\T\\ family on fall prevention, incl call for assistance when getting out of bed, Assessed \\T\\ reinforced patient's understanding of fall precautions, Provided non-skid footwear, Hourly rounding (assess needs \\T\\ fall precautionary measures) done, Used ambulatory aids as needed (educated on \\T\\ assisted with), Used gait belt as appropriate. Abuse screen: Denies threats or abuse. Denies injuries from another. Nutritional screening: No deficits noted. Tuberculosis screening: No symptoms or risk factors identified. Assessment: 00:28 General: Appears uncomfortable, well groomed, Behavior is appropriate for age, anxious, ja5 Reports PT STATED HISTORY OF DORIE/ AND PANIC ATTACKS. PT REPORTS CHEST PAIN/ SOB . PA MADE AWARE AND CURRENTLY AT THE BEDSIDE. Pain: Complains of pain in chest, PT STATED CHEST PAIN PRIOR TO ARRIVAL TO THE ED. PT CURRENTLY DENIES CHEST PAIN AT THIS TIME Pain does not radiate. Pain currently is 0 out of 10 on a pain scale. level that patient reports is acceptable is 0 out of 10 on a pain scale. Pain began suddenly, 1 hour ago. STATED BY THE PT Also complains of diaphoresis, shortness of breath, PT STATED "SWEATING AT HOME" AND DENIES SWEATING NOW. NO DIAPHORESIS SEEN ON ASSESSMENT BY HANY GONZALEZ . PT REPORTS SOB. PT O2 SAT 100% ON RA. Neuro: No deficits noted. [place] Agitation-Sedation Scale (RASS): 0 - Alert and Calm Level of Consciousness is awake, alert, obeys commands, Oriented to person, place, time, situation, Appropriate for age Moves all extremities. Speech is normal, Facial symmetry appears normal, Pupils are PERRLA, Pupil Size: 2. Cardiovascular: Reports PT STATED "I HAD CHEST PAIN BEFORE I CAME HERE, BUT I AM NOT HAVING ANY CHEST PAIN NOW". Cardiovascular: Capillary refill < 3 seconds Clubbing of nail beds is absent JVD is absent Patient's skin is warm and dry. Respiratory: Reports shortness of breath on exertion. Respiratory: Airway is patent Trachea midline Respiratory effort is even, Respiratory pattern is regular, symmetrical. GI: No deficits noted. No signs and/or symptoms were reported involving the gastrointestinal system. Abdomen is flat, non-distended. : No deficits noted. No signs and/or symptoms were reported regarding the genitourinary system. EENT: No signs and/or symptoms were reported regarding the EENT system. Derm: No signs and/or symptoms reported regarding the dermatologic system. Skin is intact, Skin is normal, Skin temperature is cool. Musculoskeletal: No signs and/or symptoms reported regarding the musculoskeletal system. Circulation, motion, and sensation intact. Capillary refill < 3 seconds, Range of motion: intact in all extremities. 03:40 Reassessment: Patient appears in no apparent distress at this time. Patient and/or ja5 family updated on plan of care and expected duration. Pain level reassessed. Patient is alert, oriented x 3, equal unlabored respirations, skin warm/dry/pink. Patient denies pain at this time. Patient states feeling better. Patient states symptoms have improved. General: Appears in no apparent distress. uncomfortable, well groomed, Behavior is calm, cooperative, appropriate for age. Pain: Denies pain. Neuro: No deficits noted. [place] Agitation-Sedation Scale (RASS): 0 - Alert and Calm Level of Consciousness is awake, alert, obeys commands, Oriented to person, place, time, situation, Appropriate for age Moves all extremities. Speech is normal, Facial symmetry appears normal, Pupils are PERRLA, Pupil Size: 2. Cardiovascular: Reports None Capillary refill < 3 seconds Clubbing of nail beds is absent JVD is absent Patient's skin is warm and dry. Respiratory: No deficits noted. Airway is patent Trachea midline Respiratory effort is even, unlabored, Respiratory pattern is regular, symmetrical. GI: No deficits noted. No signs and/or symptoms were reported involving the gastrointestinal system. Abdomen is flat, non-distended. : No signs and/or symptoms were reported regarding the genitourinary system. EENT: No deficits noted. No signs and/or symptoms were reported regarding the EENT system. Derm: No deficits noted. No signs and/or symptoms reported regarding the dermatologic system. Skin is intact, Skin is normal, Skin temperature is cool. Musculoskeletal: No signs and/or symptoms reported regarding the musculoskeletal system. Circulation, motion, and sensation intact. Capillary refill < 3 seconds, Range of motion: intact in all extremities. Vital Signs: 00:03 BP 123 / 83; Pulse 95; Resp 18 S; Temp 97.2(T); Pulse Ox 100% on R/A; Weight 70.31 kg; ha1 Height 5 ft. 4 in. ; 01:14 BP 130 / 80; Pulse 80; Resp 18; Pulse Ox 100% on R/A; Pain 0/10; ja5 02:02 BP 131 / 70; Pulse 75; oe 02:02 Pulse 76; Resp 16; Pulse Ox 100% on 2 lpm NC; Pain 0/10; ja5 03:15 BP 135 / 77; Pulse 76; Resp 16; Temp 97.6; Pulse Ox 100% on R/A; Pain 0/10; ja5 00:03 Body Mass Index 26.61 (70.31 kg, 162.56 cm) ha1 01:14 Pain Scale: Adult ja5 02:02 Pain Scale: Adult ja5 03:15 Pain Scale: Adult ja5 Vitals: 01:14 Cardiac Rhythm Assessment Regular. ja5 03:15 Cardiac Rhythm Assessment Regular Sinus rhythm. ja5 [place] Coma Score: 00:20 Eye Response: spontaneous(4). Verbal Response: oriented(5). Motor Response: obeys ja5 commands(6). Total: 15. 02:02 Eye Response: spontaneous(4). Verbal Response: oriented(5). Motor Response: obeys ja5 commands(6). Total: 15. 03:15 Eye Response: spontaneous(4). Verbal Response: oriented(5). Motor Response: obeys ja5 commands(6). Total: 15. ED Course: 00:04 Patient arrived in ED. im 00:07 Guzman Fuentes PA-C is PHCP. cp 00:07 Helio Lira MD is Attending Physician. cp 00:13 Triage completed. ha1 00:28 Kendra Hicks is Primary Nurse. ja5 00:28 Patient has correct armband on for positive identification. Bed in low position. Call ja5 light in reach. Side rails up X2. Client placed on continuous cardiac and pulse oximetry monitoring. NIBP monitoring applied. monitoring manager on. Pulse ox on. NIBP on. 00:28 EKG done, by geothermal field technician. reviewed by Helio Lira MD. ja5 00:37 Inserted saline lock: 22 gauge in left antecubital area, using aseptic technique. ja5 ,using aseptic technique. 22G DIFFUSEX Blood collected. Flushed with 10 mL NS. 00:38 LFT's Sent. 5 00:38 CBC with Diff Sent. 5 00:38 Basic Metabolic Panel Sent. 5 00:38 NT PRO-BNP Sent. 00:38 Magnesium Sent. 00:38 Troponin HS Sent. 00:38 PT-INR Sent. 5 01:07 No apparent distress. Awaiting for x-ray, Awaiting: XRAY AT THE BEDSIDE. Pt visited by 5 PT SIGNIFICANT OTHER AT THE BEDSIDE W/ PT. 01:14 No apparent distress. Awaiting lab results, Awaiting for x-ray. 5 01:14 Patient has correct armband on for positive identification. Bed in low position. Call ja5 light in reach. Side rails up X2. Adult w/ patient. Provided Education on: PT AND PT SIGNIFICANT OTHER VERBALZIED UNDERSTANDING OF CARE AND TEACHING. PT AWAITING BLOOD RESULTS AND RADIOLOGY. Client placed on continuous cardiac and pulse oximetry monitoring. NIBP monitoring applied. monitoring manager on. Pulse ox on. NIBP on. 01:14 No provider procedures requiring assistance completed. IV is patent, Flushed left. ja5 Oxygen administration via nasal cannula PA MADE AWARE AND VERBALIZED UNDERSTANDING. 01:23 XRAY Chest (1 view) In Process Unspecified. EDMS 02:01 UA Rfx Des Cult if indicated Sent. oe 02:01 UDS Sent. oe 02:01 Test, Urine Sent. oe 02:01 PT-INR Sent. oe 02:45 Troponin High Sensitivity Sent. ja5 03:15 Fausto Robertson MD is Referral Physician. cp 03:15 Cesar Vang MD is Referral Physician. cp 03:15 No apparent distress. ja5 03:15 Patient has correct armband on for positive identification. Bed in low position. Call ja5 light in reach. Side rails up X2. Adult w/ patient. PT SIGNIFICANT OTHER. Provided Education on: PT VERBALZIED UNDERSTANDING OF CARE AND TEACHING . Client placed on continuous cardiac and pulse oximetry monitoring. NIBP monitoring applied. monitoring manager on. Pulse ox on. NIBP on. 03:15 IV discontinued, intact, bleeding controlled, No redness/swelling at site. Pressure ja5 dressing applied. Patient maintains SpO2 saturation greater than 95% on room air. 03:46 Patient N/A. ja5 Administered Medications: 01:06 Drug: Ativan IVP 1 mg IVP once Route: IVP; Site: left antecubital; ja5 03:47 Follow up: Response: No adverse reaction; Marked relief of symptoms ja5 01:06 Drug: Clopidogrel PO 75 mg PO once Route: PO; ja5 03:47 Follow up: Response: No adverse reaction ja5 Medication: 00:20 VIS not applicable for this client. [email or web address] Outcome: 03:16 Discharge ordered by . jennifer 03:30 Discharged to home ambulatory, with significant other, ashley 03:30 Condition: stable 03:30 Discharge instructions given to patient, significant other, Instructed on discharge instructions, follow up and referral plans. Demonstrated understanding of instructions, follow-up care, Prescriptions given X NONE 03:30 No charge visit due to PT VERBALIZED UNDERSTANDING OF CARE. PT VSS AND PT IS ALERT AND ORIENTATED TIMES 4. PT CURRENTLY IN NO SIGNS OF DISTRESS AND PT DENIES PAIN AT THIS TIME. PT ACCOMPANIED BY SIGNIFICANT OTHER. HANY GONZALEZ HANDS DC PAPER WORK TO PT AND PT SIGNIFICANT OTHER SIGNS DC PAPER PER PT REQUEST. HANY GONZALEZ ALSO SIGNS DC PAPERWORK WITNESS . 03:48 Patient left the ED. ja5 Signatures: Dispatcher [employer] EDMS Guzman Fuentes PA-C PA-C cp Espinosa, Orlando oe Ayala, Heidy RN RN ha1 Susana Borden Joy ja5
[2025-06-30 04:11] VITALS: O2SAT 100
[2025-06-30 04:15] VITALS: BP 135/77; TEMP 97.6
== END 2025-06-30 03:48 | disposition home or self-care (01) ==
LOC: ER 00:02
DX: R07.89 Other chest pain (principal); F41.9 Anxiety disorder, unspecified; I10 Essential (primary) hypertension
CPT/HCPCS: 36415; 71045; 80048; 80076; 80307; 81001; 81025; 83735; 83880; 84484; 85025; 85610; 93005; 96374